=== PATIENT | female | born 1950 | race Caucasian/White ===

== ENCOUNTER → 2017-02-12 | Outpatient (CLI) | payer MEDICARE, BC ==
--- NOTE | 2017-02-12 16:34 | MY ---
EXAMINATION: Bilateral digital mammography utilizing CAD. HISTORY: Screening exam. Comparison is made to previous studies dated 02/08/2015, 01/26/2014. FINDINGS: Bilateral scattered fibroglandular densities. No suspicious calcifications, masses or architectural distortions. No pathologic appearing lymph nodes, no abnormal skin thickening or nipple inversion. CAD highlighted regions appear normal at this time. IMPRESSION: BI-RADS category I - negative mammogram. Continued screening according to ACR-ACS guidelines sugg aston. THE FALSE-NEGATIVE RATE OF MAMMOGRAM IS APPROXIMATELY 10%. MANAGEMENT OF A PALPABLE ABNORMALITY MUST BE BASED UPON CLINICAL GROUNDS. SENSITIVITY FOR DETECTION OF ABNORMALITIES IN DENSE BREASTS IS LOW. NOTE: A letter will be sent to the patient regarding findings. [facility] -- ASTER Ruiz [phone] - FAX [phone]
== END ==
LOC: MW.MAM 12:36
PROVIDERS: ATTEND Obstetrics & Gynecology
DX: Z12.31 Encounter for screening mammogram for malignant neoplasm of breast (principal)
CPT/HCPCS: G0202; G0202-26

== ENCOUNTER → 2017-02-19 | Outpatient (CLI) | payer MEDICARE, BC | END | disposition home or self-care (01) | LOC: MW.CHORTHO 11:30 | PROVIDERS: ATTEND Orthopaedic Surgery | DX: M25.511 Pain in right shoulder (principal) | CPT/HCPCS: 20610; G0463; J1040 ==

== ENCOUNTER 2017-08-14 06:51 | Day surgery (SDC) | payer MEDICARE, BC ==
[~2017-08-14 06:51] MED LIST: Clindamycin Phosphate in D5W 900 MG in Premix Bag 1 BAG IV SCH; Lactated Ringers 1,000 ML IV SCH
[2017-08-14] MEDS ORDERED: Midazolam 1 MG/ML 2 ML SDV ONE (07:21)
[2017-08-14] MEDS ORDERED: Propofol 200 MG/20 ML SDV ONE ×2 (07:21→08:55)
[2017-08-14] MEDS ORDERED: fentaNYL 100 MCG/2 ML SDV ONE (07:21)
[2017-08-14] MEDS ORDERED: Dexamethasone 4 MG/ML 5 ML MDV ONE (07:22)
[2017-08-14] MEDS ORDERED: Sodium Chloride 0.9% 40 ML ONE (07:22)
[2017-08-14] MEDS ORDERED: ceFAZolin 1 GM Vial ONE (07:22)
[2017-08-14] MEDS ORDERED: Succinylcholine/Normal Saline 200 MG/10 ML Syringe ONE (07:22)
[2017-08-14] MEDS ORDERED: Ondansetron 4 MG/2 ML SDV ONE (07:22)
[2017-08-14] MEDS ORDERED: Bupivacaine 0.5% 10 ML SDV ONE (07:58)
[2017-08-14] MEDS ORDERED: Bupivacaine 25%/EPINEPHrine/PF 30 ML ONE (07:58)
[2017-08-14] MEDS ORDERED: Ketorolac 10 MG Tab PO PRN (08:00)
--- NOTE | 2017-08-14 09:37 | PCM.PREANE ---
Preanesthetic Assessment - Procedure Proposed Procedure: Right shoulder arthroscopy and possible repair - Anesthesia/Transfusion/Family Hx Anesthesia History: Prior Anesthesia Without Reaction Family History of Anesthesia Reaction: No Transfusion History: No Prior Transfusion(s) - Review of Systems General: Other (pain in shoulder, legal blindness) Pulmonary: Other (Sleep apnea (no CPAP)) Cardiovascular: Other (HTN) Gastrointestinal: Abdominal Pain (irritable bowel), Other (GERD) Neurological: Other (shoulder pain) - Physical Assessment NPO Status Date: 08/13/17 NPO Status Time: 23:00 O2 Sat by Pulse Oximetry: 97 Respiratory Rate: 16 Vital Signs: Last Vital Signs Temp 98.2 F 08/14/17 06:30 Pulse 81 08/14/17 06:30 Resp 16 08/14/17 06:30 BP 157/86 H 08/14/17 06:30 Pulse Ox 97 08/14/17 06:30 Height: 5 ft 5.5 in Weight: 197 lb ASA Class: 3 Mental Status: Alert & Oriented x3 Airway Class: Mallampati = 3 Dentition: Reports: Normal Dentition Thyro-Mental Finger Breadths: 2 Mouth Opening Finger Breadths: 2 ROM/Head Extension: Limited/Partial Lungs: Clear to Auscultation, Normal Respiratory Effort Cardiovascular: Regular Rate, Regular Rhythm, No Murmurs - Allergies Allergies/Adverse Reactions: Allergies Allergy/AdvReac Type Severity Reaction Status Date / Time amoxicillin [From Augmentin] Allergy Abdominal Verified 08/12/17 12:37 Pain chlorpheniramine Allergy Change Verified 08/12/17 12:37 Mental Status clavulanic acid Allergy Abdominal Verified 08/12/17 12:37 [From Augmentin] Pain esomeprazole magnesium Allergy Stomach Verified 08/12/17 12:37 [From Nexium] Upset sulfamethoxazole Allergy Nausea and Verified 08/12/17 12:37 [From Bactrim] Vomiting trimethoprim [From Bactrim] Allergy Nausea and Verified 08/12/17 12:37 Vomiting - Blood Blood Available: No Product(s) Available: None - Anesthesia Plan Free Text/Narrative:: Probable interscalene block at end case.. agreed and expected. Consent signed. Pre-Op Medication Ordered: Antacids (given omeprazole iv) - Acknowledgements Anesthesia Type Planned: General Anesthesia, Regional Block Pt an Appropriate Candidate for the Planned Anesthesia: Yes Alternatives and Risks of Anesthesia Discussed w Pt/Guardian: Yes Pt/Guardian Understands and Agrees with Anesthesia Plan: Yes Additional Comments: Unable to access computer earlier due to [employer] failure. 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: Musculoskeletal History: Reports: Arthritis Neurological History: Other Neuro History: carpal tunnel syndrome Psychiatric History: Reports: Anxiety Other Psychiatric History: when traveling because of IBS Endocrine/Metabolic History: Reports: Obesity/BMI 30+ Hematologic History: Reports: None Immunologic History: Reports: None Oncologic (Cancer) History: Reports: None Dermatologic History: Reports: None - Infectious Disease History Infectious Disease History: Reports: Chicken Pox, Measles - Past Surgical History HEENT Surgical History: Reports: Cataract Surgery GI Surgical History: Reports: Cholecystectomy, Colonoscopy, EGD Musculoskeletal Surgical History: Reports: Arthroscopic Knee, Other (See Below) Other Musculoskeletal Surgeries/Procedures:: left CTR, Jen procedure -right great toe - SUBSTANCE USE Smoking Status *Q: Never Smoker Second Hand Smoke Exposure: No Days Per Week of Alcohol Use: 0 Recreational Drug Use History: Yes - HOME MEDS Home Medications: Home Meds Omeprazole Magnesium [Prilosec Otc] 40 mg PO DAILY 10/09/14 [History] Psyllium Husk/Ca Carbonate [Metamucil Plus Calcium Capsule] 1 tab PO DAILY 10/09 [History] amLODIPine Besylate [Amlodipine Besylate] 5 mg PO DAILY 10/09/14 [History] Escitalopram [Lexapro] 5 mg PO DAILY 03/11/15 [History] Mirabegron [Myrbetriq] 50 mg PO DAILY 03/11/15 [History] Acetaminophen/Diphenhydramine [Tylenol Pm Ex-Strength Caplet] 1 tab PO BEDTIME 08/12/17 [History] Benifiber 1 dose PO DAILY 08/12/17 [History] Diclofenac Sodium [Voltaren 1% Gel] 1 dose TOP ASDIRECTED 08/12/17 [History] Gastrex 1 dose PO DAILY 08/12/17 [History] Hyoscyamine Sulfate 0.125 mg SL Q4H PRN 08/12/17 [History] L.acidoph,Paracasei, B.lactis [Probiotic] 1 - 2 cap PO DAILY 08/12/17 [History] Loratadine [Claritin] 10 mg PO DAILY 08/12/17 [History] Nystatin [Nystatin Ointment] 1 dose TOP ASDIRECTED PRN 08/12/17 [History] Triamcinolone Acetonide [Triamcinolone Acetonide 0.1% Oint] 1 dose TOP ASDIRECTED PRN 08/12/17 [History] - CURRENT (IN HOUSE) MEDS Current Meds: Current Medications Hydrocodone Bitart/Acetaminophen ([place] 325-10 Mg) 1 - 2 tab PO Q4H PRN PRN Reason: Pain Fentanyl (Sublimaze) 50 mcg IVPUSH Q5M PRN PRN Reason: Pain Clindamycin Phosphate 900 mg/ (Premix) 50 mls @ 100 mls/hr IV ONCALL DARLYN Lactated Ringer's (Ringers, Lactated) 1,000 mls @ 100 mls/hr IV ASDIRECTED DALRYN Ketorolac Tromethamine (Toradol) 10 mg PO Q6H PRN PRN Reason: Pain Stop: 08/19/17 08:01 Discontinued Medications Bupivacaine HCl (Sensorcaine-Mpf 0.5%) Confirm Administered Dose 10 ml .ROUTE .STK-MED ONE Stop: 08/14/17 07:59 Cefazolin Sodium (Ancef) Confirm Administered Dose 2 gm .ROUTE .STK-MED ONE Stop: 08/14/17 07:23 Dexamethasone (Dexamethasone) Confirm Administered Dose 20 mg .ROUTE .STK-MED ONE Stop: 08/14/17 07:23 Fentanyl (Sublimaze) Confirm Administered Dose 200 mcg .ROUTE .STK-MED ONE Stop: 08/14/17 07:22 Sodium Chloride (Normal Saline) Confirm Administered Dose 40 mls @ as directed .ROUTE .STK-MED ONE Stop: 08/14/17 07:23 Bupivacaine HCl/Epinephrine Bitart (Sensorc Mpf 0.25%-Epi 1:[id number]) Confirm Administered Dose 30 mls @ as directed .ROUTE .STK-MED ONE Stop: 08/14/17 07:59 Lidocaine HCl (Xylocaine-Mpf 1%) Confirm Administered Dose 5 ml .ROUTE .STK-MED ONE Stop: 08/14/17 07:23 Midazolam HCl (Versed 1 Mg/Ml) Confirm Administered Dose 2 mg .ROUTE .STK-MED ONE Stop: 08/14/17 07:22 Ondansetron HCl (Zofran) Confirm Administered Dose 4 mg .ROUTE .STK-MED ONE Stop: 08/14/17 07:23 Propofol (Diprivan 20 Ml) Confirm Administered Dose 200 mg .ROUTE .STK-MED ONE Stop: 08/14/17 07:22 Propofol (Diprivan 20 Ml) Confirm Administered Dose 200 mg .ROUTE .STK-MED ONE Stop: 08/14/17 08:56 Succinylcholine Chloride (Succinylcholine In Ns Pf) Confirm Administered Dose 200 mg .ROUTE .STK-MED ONE Stop: 08/14/17 07:23
[2017-08-14] MEDS ORDERED: Famotidine 20 MG/2 ML SDV IVPUSH ONE (10:00)
--- NOTE | 2017-08-14 10:25 | PCM.OPNOTE ---
- General Post-Op/Procedure Note Date of Surgery/Procedure: 08/14/17 Operative Procedure(s): R shoulder arthroscopy with SAD, debridement of anterior labrum, and RTCR Post-Op Diagnosis: R shoulder impingement, degenerative anterior labral tear, and rotator cuff tear Anesthesia Technique: General ET Tube Primary Surgeon: Whitney Eagle Applications Trainer: Bouchra Parra Applications Trainer: Shaun Richardson in mLs: 10 Condition: Good Free Text/Narrative:: #[id number]
[2017-08-14] MEDS: fentaNYL 100 MCG/2 ML SDV IVPUSH PRN ×2 (10:39→10:48)
[2017-08-14] MEDS: Acetaminophen/HYDROcodone 325-10 MG Tab PO PRN ×2 (11:20→14:11)
[2017-08-14] MEDS ORDERED: fentaNYL 100 MCG/2 ML SDV IVPUSH PRN (11:33)
--- NOTE | 2017-08-14 11:38 | PCM.POSTAN ---
POST ANESTHESIA ASSESSMENT - MENTAL STATUS Mental Status: Alert, Oriented - RESPIRATORY Respiratory Status: Respiratory Rate WNL, Airway Patent, O2 Saturation Stable - CARDIOVASCULAR CV Status: Pulse Rate WNL, Blood Pressure Stable - GASTROINTESTINAL GI Status: No Symptoms - PAIN Pain Score: 8 (block obviously did not work) - POST OP HYDRATION Hydration Status: Adequate & Stable - OBSERVATIONS Free Text/Narrative:: to samaria II
--- NOTE | 2017-08-14 11:39 | PCM48HPAN ---
Post Anesthesia Note - EVALUATION WITHIN 48HRS OF ANESTHETIC Vital Signs in Normal Range: Yes Patient Participated in Evaluation: Yes Respiratory Function Stable: Yes Airway Patent: Yes Cardiovascular Function Stable: Yes Hydration Status Stable: Yes Pain Control Satisfactory: Yes (required iv assit to control pain; block failure ) Nausea and Vomiting Control Satisfactory: Yes Mental Status Recovered: Yes
--- NOTE | 2017-08-14 16:44 | OR ---
SURGEON: Whitney Eagle MD DATE OF PROCEDURE: 08/14/2017 PREOPERATIVE DIAGNOSIS: Right shoulder impingement syndrome. POSTOPERATIVE DIAGNOSES: 1. Right shoulder impingement syndrome. 2. Right shoulder degenerative anterior labral tear. 3. Right shoulder rotator cuff tear. PROCEDURES: Right shoulder arthroscopy with: 1. Subacromial decompression with release of coracoacromial ligament and acromioplasty. 2. Debridement of degenerative anterior labral tear. 3. Arthroscopic rotator cuff repair. ASSISTANTS: 1. Bouchra Parra PA-C. 2. Shaun Richardson, PGY-2. ANESTHESIA: General. ESTIMATED BLOOD LOSS: 10 mL. TOURNIQUET TIME: Zero minutes. COMPLICATIONS: None. DVT PROPHYLAXIS: PAS boot to bilateral lower extremities. IMPLANTS USED: Two Arthrex 4.5 mm corkscrew anchors ([employer]) and one Arthrex 4.75 SwiveLock anchor ([employer]). BRIEF HISTORY: Silvestre is a 67-year-old female, who has had complaint of progressive right shoulder pain. She had failed conservative treatment. An MRI did show a tear of the rotator cuff. Due to her lack of response to conservative treatment, I did recommend surgical intervention. Risks and goals of procedure were discussed with the patient and were documented preoperatively. She agreed to proceed. DESCRIPTION OF PROCEDURE: The patient was properly identified and brought to the operating room. She was transferred from the OR cart and placed on the operating room table in supine position. General anesthesia was administered. After adequate anesthesia was obtained, the patient was placed in a beach-chair type position. Care was taken to pad all bony prominences. Her head was secured. The right upper extremity was prepped in standard fashion using ChloraPrep solution. It was then sterilely draped. A time-out was performed to ensure correct site and procedure. Preoperative antibiotics were given. The surgical site had been marked preoperatively. Bony landmarks were identified with a marking pen. Approximately 30 mL of normal saline was introduced into the glenohumeral joint. A posterior portal was established. Blunt trocar and cannula along with the camera were inserted into the glenohumeral joint. Camera, inflow, and outflow were assembled. The rotator interval showed mild synovitis. An anterior portal was established. A probe was inserted. The subscapularis appeared intact. No loose bodies were noted within the subscapular recess. The biceps was then identified. There did not appear to be any fraying or synovitis. This was pulled into the joint and no tearing was noted distally. The anterior labrum did show some degenerative tearing. This was resected back to a stable remnant using electrocautery. Both the glenoid and humeral head were inspected and no significant degenerative changes were found. The posterior labrum appeared intact. I then extended down into the axillary pouch. No loose bodies were identified. The arm was then brought into an abducted and externally rotated position. The bare area was noted posteriorly. As I progressed forward, a full-thickness tear was noted of the anterior supraspinatus. The arm was then brought back into a neutral position. Instruments were then removed from the glenohumeral joint. Blunt trocar and cannula were then introduced into the subacromial space. A lateral portal was established. She did have extensive bursitis present in the subacromial space. This was resected with a combination of the shaver and electrocautery. The coracoacromial ligament was released anteriorly. She did have a downsloping acromion and a 5.0 mm ashish was used to perform an acromioplasty. This provided good decompression of the subacromial space. The full-thickness tear was noted anteriorly. There was only a thin remnant of tissue remaining which was resected. The ashish was then used to roughen the surface just lateral to the articular surface. Two 4.5 mm corkscrew anchors were then placed. Sutures were passed through the cuff tissue. The cuff tissue was quite robust and was able to easily be pulled back to the footprint. The sutures were then tied in a [id number] fashion which provided good placement of the rotator cuff on the bony surface. I elected to place a lateral row to provide further compression to the rotator cuff. A 4.75 mm SwiveLock anchor was then placed laterally. This was attached to the sutures from the cuff repair and was malleted into position. This provided good compression of the lateral portion of the cuff. It was probed and found to be intact. Instruments were then removed from the shoulder. The portal sites were closed with 3-0 nylon. Xeroform gauze was placed over the wound and a bulky dressing was applied. She was placed into a shoulder immobilizer. She tolerated the procedure well. At the completion, the case was turned over to the anesthesia staff for placement of an interscalene block. All needle and sponge counts were correct. HOWIE / SARY /[id number]
[2017-08-14 18:23] VITALS: BP 130/73
== END 2017-08-14 14:45 | disposition home or self-care (01) ==
LOC: MW.SDS 06:51
PROVIDERS: ATTEND Orthopaedic Surgery
DX: M75.41 Impingement syndrome of right shoulder (principal); S43.491A Other sprain of right shoulder joint, initial encounter; M75.121 Complete rotator cuff tear or rupture of right shoulder, not specified as traumatic; M65.811 Other synovitis and tenosynovitis, right shoulder; M75.51 Bursitis of right shoulder; I10 Essential (primary) hypertension; H54.8 Legal blindness, as defined in USA; K21.9 Gastro-esophageal reflux disease without esophagitis; K58.9 Irritable bowel syndrome, unspecified; M19.90 Unspecified osteoarthritis, unspecified site; G47.30 Sleep apnea, unspecified; E66.9 Obesity, unspecified; F41.9 Anxiety disorder, unspecified; Z88.0 Allergy status to penicillin; Z88.1 Allergy status to other antibiotic agents; Z88.2 Allergy status to sulfonamides; Z88.8 Allergy status to other drugs, medicaments and biological substances; Z79.899 Other long term (current) drug therapy; Z68.31 Body mass index [BMI] 31.0-31.9, adult; Z90.49 Acquired absence of other specified parts of digestive tract; Z98.890 Other specified postprocedural states
CPT/HCPCS: 29826; 29827; A9270; C1713; J0690; J1100; J2250; J2405; J3010; J7120; 01622; 88304; J2704

== ENCOUNTER 2018-05-21 07:26 | Day surgery (SDC) | payer MEDICARE, BC ==
[~2018-05-21 07:26] MED LIST changes: +Bupivacaine 25%/EPINEPHrine/PF 30 ML ONE; -Clindamycin Phosphate in D5W 900 MG in Premix Bag 1 BAG IV SCH; -Lactated Ringers 1,000 ML IV SCH
--- NOTE | 2018-05-21 07:56 | PCM.OPNOTE ---
- General Post-Op/Procedure Note Date of Surgery/Procedure: 05/21/18 Operative Procedure(s): excisional debridement skin and subcutaneous tissue and primary intermediate repair total length of both 7cm Pre Op Diagnosis: left leg wound s/p dog bite - chronic Post-Op Diagnosis: Same Anesthesia Technique: Local, MAC Primary Surgeon: Tomasa Mccormack Instructor Ground Services: Norah Parrish Complications: None Condition: Good
--- NOTE | 2018-05-21 07:58 | PCM.PREANE ---
Preanesthetic Assessment - Anesthesia/Transfusion/Family Hx Anesthesia History: Prior Anesthesia Reaction Family History of Anesthesia Reaction: No Transfusion History: No Prior Transfusion(s) - Review of Systems General: No Symptoms Pulmonary: No Symptoms Cardiovascular: No Symptoms Gastrointestinal: No Symptoms Neurological: No Symptoms Other: Reports: None - Physical Assessment NPO Status Date: 05/20/18 Height: 1.66 m Weight: 85.275 kg ASA Class: 2 Mental Status: Alert & Oriented x3 Airway Class: Mallampati = 2 Dentition: Reports: Normal Dentition ROM/Head Extension: Full Lungs: Clear to Auscultation, Normal Respiratory Effort Cardiovascular: Regular Rate, Regular Rhythm - Allergies Allergies/Adverse Reactions: Allergies Allergy/AdvReac Type Severity Reaction Status Date / Time amoxicillin [From Augmentin] Allergy Abdominal Verified 05/15/18 11:07 Pain chlorpheniramine Allergy Change Verified 05/15/18 11:07 Mental Status clavulanic acid Allergy Abdominal Verified 05/15/18 11:07 [From Augmentin] Pain esomeprazole magnesium Allergy Stomach Verified 05/15/18 11:07 [From Nexium] Upset sulfamethoxazole Allergy Nausea and Verified 05/15/18 11:07 [From Bactrim] Vomiting trimethoprim [From Bactrim] Allergy Nausea and Verified 05/15/18 11:07 Vomiting - Anesthesia Plan Pre-Op Medication Ordered: None - Acknowledgements Anesthesia Type Planned: MAC Pt an Appropriate Candidate for the Planned Anesthesia: Yes Alternatives and Risks of Anesthesia Discussed w Pt/Guardian: Yes Pt/Guardian Understands and Agrees with Anesthesia Plan: Yes Additional Comments: PMH: visually impaired, HTN, GERD, IBS, reactive airway disease. 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: Musculoskeletal History: Reports: Arthritis Other Neuro History: carpal tunnel syndrome Psychiatric History: Reports: Anxiety Other Psychiatric History: when traveling because of IBS Endocrine/Metabolic History: Reports: Obesity/BMI 30+ Hematologic History: Reports: None Immunologic History: Reports: None Oncologic (Cancer) History: Reports: None Dermatologic History: Reports: None - Infectious Disease History Infectious Disease History: Reports: Chicken Pox, Measles - Past Surgical History GI Surgical History: Reports: Cholecystectomy Musculoskeletal Surgical History: Reports: Arthroscopic Knee, Carpal Tunnel, Other (See Below) Other Musculoskeletal Surgeries/Procedures:: calcium deposit removed from right great toe - SUBSTANCE USE Smoking Status *Q: Never Smoker Tobacco Use Within Last Twelve Months: No Recreational Drug Use History: No - HOME MEDS Home Medications: Home Meds Omeprazole Magnesium [Prilosec Otc] 40 mg PO DAILY 10/09/14 [History] Psyllium Husk/Ca Carbonate [Metamucil Plus Calcium Capsule] 1 tab PO DAILY 10/09 [History] amLODIPine Besylate [Amlodipine Besylate] 5 mg PO DAILY 10/09/14 [History] Escitalopram [Lexapro] 5 mg PO DAILY 03/11/15 [History] Mirabegron [Myrbetriq] 50 mg PO DAILY 03/11/15 [History] Hyoscyamine Sulfate 0.125 mg SL Q4H PRN 08/12/17 [History] L.acidoph,Paracasei, B.lactis [Probiotic] 1 - 2 cap PO DAILY 08/12/17 [History] Nystatin [Nystatin Ointment] 1 dose TOP ASDIRECTED PRN 08/12/17 [History] Triamcinolone Acetonide [Triamcinolone Acetonide 0.1% Oint] 1 dose TOP ASDIRECTED PRN 08/12/17 [History] Acetaminophen/Diphenhydramine [Tylenol Pm Ex-Strength Caplet] 1 tab PO BEDTIME 05/15/18 [History] Albuterol Sulfate [Proair Hfa] 2 puff INH Q4H PRN 05/15/18 [History] Cetirizine [ZyrTEC] 10 mg PO DAILY 05/15/18 [History] Diclofenac Sodium [Voltaren] 1 dose TOP DAILY PRN 05/15/18 [History] Furosemide 20 mg PO DAILY 05/15/18 [History] Ibuprofen 400 mg PO QAM 05/15/18 [History] - CURRENT (IN HOUSE) MEDS Current Meds: Current Medications Bupivacaine HCl/Epinephrine Bitart (Marcaine 0.25%/Epinephrine 1:200,000) 10 ml INJECT ONETIME ONE Stop: 05/21/18 08:01 Clindamycin Phosphate 600 mg/ (Premix) 50 mls @ 150 mls/hr IV ONETIME ONE Stop: 05/21/18 08:19 Last Admin: 05/21/18 07:41 Dose: 150 mls/hr Lactated Ringer's (Ringers, Lactated) 1,000 mls @ 125 mls/hr IV ASDIRECTED [facility] Last Admin: 05/21/18 07:42 Dose: 125 mls/hr Tramadol HCl (Ultram) 50 mg PO Q4H PRN PRN Reason: Pain Discontinued Medications Bupivacaine HCl/Epinephrine Bitart (Sensorc Mpf 0.25%-Epi 1:[id number]) Confirm Administered Dose 30 mls @ as directed .ROUTE .STK-MED ONE Stop: 05/21/18 07:21
[2018-05-21] MEDS ORDERED: traMADol 50 MG Tab PO PRN (08:00)
[2018-05-21] MEDS ORDERED: Lactated Ringers 1,000 ML IV SCH (08:00)
[2018-05-21] MEDS ORDERED: Clindamycin Phosphate in D5W 600 MG in Premix Bag 1 BAG IV ONE ×2 (08:00)
[2018-05-21] MEDS ORDERED: Bupivacaine 0.25%/EPINEPHrine 1:200,000 10 ML SDV INJECT ONE (08:00)
[2018-05-21] MEDS ORDERED: ceFAZolin/Dextrose,Iso-Osmotic 2 GM/50 ML Duplex Bag IV ONE (08:31)
[2018-05-21] MEDS ORDERED: Lidocaine 2% 5 ML SDV ONE (08:31)
[2018-05-21] MEDS ORDERED: Propofol 200 MG/20 ML SDV ONE (08:31)
[2018-05-21] MEDS ORDERED: Midazolam 1 MG/ML 2 ML SDV ONE (08:32)
[2018-05-21] MEDS ORDERED: fentaNYL 100 MCG/2 ML SDV ONE (08:32)
--- NOTE | 2018-05-21 09:55 | PCM.POSTAN ---
POST ANESTHESIA ASSESSMENT - MENTAL STATUS Mental Status: Alert, Oriented - RESPIRATORY Respiratory Status: Respiratory Rate WNL, Airway Patent, O2 Saturation Stable - CARDIOVASCULAR CV Status: Pulse Rate WNL, Blood Pressure Stable - GASTROINTESTINAL GI Status: No Symptoms - POST OP HYDRATION Hydration Status: Adequate & Stable
--- NOTE | 2018-05-21 10:03 | PCM48HPAN ---
Post Anesthesia Note - EVALUATION WITHIN 48HRS OF ANESTHETIC Vital Signs in Normal Range: Yes Patient Participated in Evaluation: Yes Respiratory Function Stable: Yes Airway Patent: Yes Cardiovascular Function Stable: Yes Hydration Status Stable: Yes Pain Control Satisfactory: Yes Nausea and Vomiting Control Satisfactory: Yes Mental Status Recovered: Yes Resp Rate: 11
[2018-05-21 11:03] VITALS: BP 131/69
--- NOTE | 2018-05-22 12:13 | OR ---
SURGEON: SHAMEKA ELIZABETH MD DATE OF PROCEDURE: 05/21/2018 PREOPERATIVE DIAGNOSIS: Left leg wound, chronic, status post dog bite. POSTOPERATIVE DIAGNOSIS: Left leg wound, chronic, status post dog bite. PROCEDURES: Excisional debridement, skin and subcutaneous tissue with primary intermediate repair. Total length of both procedures 7 cm. 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 ANESTHESIA: Local MAC. INDICATIONS: Ms. Tinsley is a 68-year-old female seen today in evaluation for a chronic nonhealing wound to the left lower extremity. Risks and benefits of debridement and primary closure were discussed with her. She is doing wound care . This could be in a deeper foreign body. Risks and benefits discussed and all questions answered. She was in agreement to proceed. PROCEDURE IN DETAIL: After informed consent was obtained and placed on the chart, the patient was brought to the operating theater and laid in supine position. After adequate local MAC anesthesia was obtained, the area was prepped and draped and a time- out was completed to confirm side and site. The area was prepped and draped, and attention was then paid to 0.25% Marcaine infiltration into the area. After adequate anesthesia, the area was excised in elliptical fashion with adequate debridement of total length of 7 cm. Once adequately debrided, this was sent for pathology and the area was meticulously hemostased. Attention was then paid to closure using 3-0 Monocryl for the deep fascial layer and the deep dermis and then a 4-0 Prolene in a horizontal mattress fashion for the skin. The wound was then dressed with Xeroform, ABD, and an Nick wrap. The patient tolerated this well. Total length of closure was 7 cm intermediate. FOLLOWUP INSTRUCTIONS: The patient will see us in 1 week, sooner if any problems, questions, or concerns. She was given a prescription for tramadol as needed for pain control. TODD / SARY /[id number]
== END 2018-05-21 10:50 | disposition home or self-care (01) ==
LOC: MW.SDS 07:26
PROVIDERS: ATTEND Plastic Surgery
DX: S81.852A Open bite, left lower leg, initial encounter (principal); W54.0XXA Bitten by dog, initial encounter; I10 Essential (primary) hypertension; H54.8 Legal blindness, as defined in USA; J44.9 Chronic obstructive pulmonary disease, unspecified; E66.9 Obesity, unspecified; Z68.30 Body mass index [BMI] 30.0-30.9, adult; F41.9 Anxiety disorder, unspecified; K21.9 Gastro-esophageal reflux disease without esophagitis; Z79.899 Other long term (current) drug therapy; Z88.1 Allergy status to other antibiotic agents; Z88.8 Allergy status to other drugs, medicaments and biological substances; Z88.0 Allergy status to penicillin
CPT/HCPCS: 12032; J0690; J2250; J2704; J3010; J3490; J7120

== ENCOUNTER 2019-02-22 14:54 | Emergency (ER) | payer MEDICARE, BC ==
[2019-02-22] MEDS ORDERED: Albuterol/Ipratropium 3.0-0.5 MG/3 ML Neb Soln NEB ONE (15:07)
--- NOTE | 2019-02-22 15:11 | EDM.PDOC ---
ED HPI GENERAL MEDICAL PROBLEM - General Chief Complaint: Respiratory Problem Stated Complaint: COUGH Time Seen by Provider: 02/22/19 15:01 - History of Present Illness INITIAL COMMENTS - FREE TEXT/NARRATIVE: HISTORY AND PHYSICAL: History of present illness: Patient is a 68-year-old white female history of COPD who presents with concern of cough over last several days she states she's concerned about x-ray and evaluation for pneumonia. There's been no fever chills nausea vomitingReview of systems: As per history of present illness and below otherwise all systems reviewed and negative. Past medical history: As per history of present illness and as reviewed below otherwise noncontributory. Surgical history: As per history of present illness and as reviewed below otherwise noncontributory. Social history: No reported history of drug or alcohol abuse. Family history: As per history of present illness and as reviewed below otherwise noncontributory. Physical exam: HEENT: Atraumatic, normocephalic, pupils reactive, negative for conjunctival pallor or scleral icterus, mucous membranes moist, throat clear, neck supple, nontender, trachea midline. Lungs: Clear to auscultation, breath sounds equal bilaterally, chest nontender. Heart: S1S2, regular, negative for clicks, rubs, or JVD. Abdomen: Soft, nondistended, nontender. Negative for masses or hepatosplenomegaly. Negative for costovertebral tenderness. Pelvis: Stable nontender. Genitourinary: Deferred. Rectal: Deferred. Extremities: Atraumatic, negative for cords or calf pain. Neurovascular unremarkable. Neuro: Awake, alert, oriented. Cranial nerves II through XII unremarkable. Cerebellum unremarkable. Motor and sensory unremarkable throughout. Exam nonfocal. Diagnostics: Chest x-ray influenza screen Therapeutics: Albuterol ipratropium nebulized Impression: #1 pneumonitis #2 history of COPD Definitive disposition and diagnosis as appropriate pending reevaluation and review of above. - Related Data Allergies Allergy/AdvReac Type Severity Reaction Status Date / Time amoxicillin [From Augmentin] Allergy Abdominal Verified 05/15/18 11:07 Pain chlorpheniramine Allergy Change Verified 05/15/18 11:07 Mental Status clavulanic acid Allergy Abdominal Verified 05/15/18 11:07 [From Augmentin] Pain esomeprazole magnesium Allergy Stomach Verified 05/15/18 11:07 [From Nexium] Upset sulfamethoxazole Allergy Nausea and Verified 05/15/18 11:07 [From Bactrim] Vomiting trimethoprim [From Bactrim] Allergy Nausea and Verified 05/15/18 11:07 Vomiting Home Meds: Home Meds Omeprazole Magnesium [Prilosec Otc] 40 mg PO DAILY 10/09/14 [History] Psyllium Husk/Ca Carbonate [Metamucil Plus Calcium Capsule] 1 tab PO DAILY 10/09 [History] amLODIPine Besylate [Amlodipine Besylate] 5 mg PO DAILY 10/09/14 [History] Escitalopram [Lexapro] 5 mg PO DAILY 03/11/15 [History] Mirabegron [Myrbetriq] 50 mg PO DAILY 03/11/15 [History] Hyoscyamine Sulfate 0.125 mg SL Q4H PRN 08/12/17 [History] L.acidoph,Paracasei, B.lactis [Probiotic] 1 - 2 cap PO DAILY 08/12/17 [History] Nystatin [Nystatin Ointment] 1 dose TOP ASDIRECTED PRN 08/12/17 [History] Triamcinolone Acetonide [Triamcinolone Acetonide 0.1% Oint] 1 dose TOP ASDIRECTED PRN 08/12/17 [History] Acetaminophen/Diphenhydramine [Tylenol Pm Ex-Strength Caplet] 1 tab PO BEDTIME 05/15/18 [History] Albuterol Sulfate [Proair Hfa] 2 puff INH Q4H PRN 05/15/18 [History] Cetirizine [ZyrTEC] 10 mg PO DAILY 05/15/18 [History] Diclofenac Sodium [Voltaren] 1 dose TOP DAILY PRN 05/15/18 [History] Furosemide 20 mg PO DAILY 05/15/18 [History] Ibuprofen 400 mg PO QAM 05/15/18 [History] traMADol [Ultram] 50 mg PO Q4H PRN #30 tablet 05/21/18 [Rx] Past Medical History - Past Health History Medical/Surgical History: Denies Medical/Surgical History HEENT History: Reports: Impaired Vision Other HEENT History: is legally blind Cardiovascular History: Reports: Hypertension Other Cardiovascular History: was told she has a "leaky valve " in her heart Respiratory History: Reports: COPD Other Respiratory History: recently diagnosed with moderate sleep apnea, no CPAP yet Gastrointestinal History: Reports: GERD, Irritable Bowel Syndrome Genitourinary History: Reports: None 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: Musculoskeletal History: Reports: Arthritis Other Neuro History: carpal tunnel syndrome Psychiatric History: Reports: Anxiety Other Psychiatric History: when traveling because of IBS Endocrine/Metabolic History: Reports: Obesity/BMI 30+ Hematologic History: Reports: None Immunologic History: Reports: None Oncologic (Cancer) History: Reports: None Dermatologic History: Reports: None - Infectious Disease History Infectious Disease History: Reports: Chicken Pox, Measles - Past Surgical History Head Surgeries/Procedures: Reports: None HEENT Surgical History: Reports: Cataract Surgery GI Surgical History: Reports: Cholecystectomy Musculoskeletal Surgical History: Reports: Arthroscopic Knee, Carpal Tunnel, Other (See Below) Other Musculoskeletal Surgeries/Procedures:: calcium deposit removed from right great toe Social & Family History - Family History Family Medical History: Noncontributory - Caffeine Use Caffeine Use: Reports: Coffee ED ROS GENERAL - Review of Systems Review Of Systems: ROS reveals no pertinent complaints other than HPI. ED EXAM, GENERAL - Physical Exam Exam: See Below (See dictation) Course - Orders/Labs/Meds Orders: Active Orders 24 hr Category Date Time Status RT Aerosol Therapy [RC] ASDIRECTED Care 02/22/19 15:08 Active Chest 1V Frontal [CR] Stat Exams 02/22/19 15:07 Ordered INFLUENZA A+B AG SCREEN [RM] Stat Lab 02/22/19 15:07 Ordered Meds: Medications Discontinued Medications Generic Name Dose Route Start Last Admin Trade Name Freq PRN Reason Stop Dose Admin Albuterol/Ipratropium 3 ml 02/22/19 15:07 Duoneb 3.0-0.5 Mg/3 Ml NEB 02/22/19 15:08 ONETIME ONE Departure - Departure Time of Disposition: 15:10 Disposition: Home, Self-Care 01 Condition: Good Clinical Impression: Pneumonitis, COPD (chronic obstructive pulmonary disease) - Discharge Information Referrals: PCP,None [Primary Care Provider] - Additional Instructions: The following information is given to patients seen in the emergency department who are being discharged to home. This information is to outline your options for follow-up care. We provide all patients seen in our emergency department with a follow-up referral. The need for follow-up, as well as the timing and circumstances, are variable depending upon the specifics of your emergency department visit. If you don't have a primary care physician on staff, we will provide you with a referral. We always advise you to contact your personal physician following an emergency department visit to inform them of the circumstance of the visit and for follow-up with them and/or the need for any referrals to a consulting specialist. The emergency department will also refer you to a specialist when appropriate. This referral assures that you have the opportunity for followup care with a specialist. All of these measure are taken in an effort to provide you with optimal care, which includes your followup. Under all circumstances we always encourage you to contact your private physician who remains a resource for coordinating your care. When calling for followup care, please make the office aware that this follow-up is from your recent emergency room visit. If for any reason you are refused follow-up, please contact the [facility] emergency department at and asked to speak to the emergency department charge nurse. Z-Lisandro Medrol as prescribed continue inhaler as directed follow-up private medical doctor as needed discussed and return as needed as discussed - My Orders Last 24 Hours: My Active Orders 02/22/19 15:07 Chest 1V Frontal [CR] Stat INFLUENZA A+B AG SCREEN [RM] Stat 02/22/19 15:08 RT Aerosol Therapy [RC] ASDIRECTED - Assessment/Plan Last 24 Hours: My Active Orders 02/22/19 15:07 Chest 1V Frontal [CR] Stat INFLUENZA A+B AG SCREEN [RM] Stat 02/22/19 15:08 RT Aerosol Therapy [RC] ASDIRECTED
[2019-02-22 16:05] VITALS: BP 136/70
--- NOTE | 2019-02-22 16:13 | CR ---
INDICATION: Chest pain. Shortness of breath. TECHNIQUE: Single-view chest. COMPARISON: None FINDINGS: Cardiovascular and mediastinum: Cardiac silhouette is not enlarged. Mild tortuosity of the descending thoracic aorta. Lungs and pleural spaces: No consolidation or overt edema. No mass. No pleural effusion. No pneumothorax. Bones and soft tissues: No acute findings. IMPRESSION: No acute pulmonary process. Dictated by Dennis Jameson MD @ 02/22/2019 4:12:48 PM Dictated by: Dennis Jameson MD @ 02/22/2019 16:13:07 (Electronically Signed)
== END 2019-02-22 16:30 | disposition home or self-care (01) ==
LOC: MW.ED 14:54
DX: J18.9 Pneumonia, unspecified organism (principal); J44.9 Chronic obstructive pulmonary disease, unspecified; I10 Essential (primary) hypertension; E66.9 Obesity, unspecified; Z88.2 Allergy status to sulfonamides; Z88.8 Allergy status to other drugs, medicaments and biological substances; Z68.31 Body mass index [BMI] 31.0-31.9, adult
CPT/HCPCS: 71045; 71045-26; 87804; 94640; 99283; 99284-25; J7620-GY

== ENCOUNTER 2019-03-24 11:23 | Day surgery (SDC) | payer MEDICARE, BC ==
[~2019-03-24 11:23] MED LIST changes: -Bupivacaine 25%/EPINEPHrine/PF 30 ML ONE; +Lactated Ringers 1,000 ML IV SCH
--- NOTE | 2019-03-24 13:14 | PCM.PREANE ---
Preanesthetic Assessment - Anesthesia/Transfusion/Family Hx Anesthesia History: Prior Anesthesia Without Reaction Family History of Anesthesia Reaction: No Transfusion History: No Prior Transfusion(s) - Review of Systems General: No Symptoms Pulmonary: Other (CEDRIC- uses CPAP, COPD) Cardiovascular: No Symptoms Neurological: No Symptoms Other: Reports: None - Physical Assessment NPO Status Date: 03/23/19 NPO Status Time: 22:30 O2 Sat by Pulse Oximetry: 99 Respiratory Rate: 15 Vital Signs: Last Vital Signs Temp 97.3 F 03/24/19 12:40 Pulse 87 03/24/19 12:40 Resp 15 03/24/19 12:40 BP 160/88 H 03/24/19 12:40 Pulse Ox 99 03/24/19 12:40 Height: 5 ft 5 in Weight: 88.904 kg ASA Class: 3 Mental Status: Alert & Oriented x3 Airway Class: Mallampati = 2 Dentition: Reports: Normal Dentition ROM/Head Extension: Full Lungs: Clear to Auscultation, Normal Respiratory Effort Cardiovascular: Regular Rate, Regular Rhythm - Lab Values: Laboratory Last Values WBC 6.79 K/uL (4.0-11.0) 03/24/19 12:42 RBC 4.70 M/uL (4.30-5.90) 03/24/19 12:42 Hgb 14.2 g/dL (12.0-16.0) 03/24/19 12:42 Hct 43.5 % (36.0-46.0) 03/24/19 12:42 MCV 92.6 fL (80.0-98.0) 03/24/19 12:42 MCH 30.2 pg (27.0-32.0) 03/24/19 12:42 MCHC 32.6 g/dL (31.0-37.0) 03/24/19 12:42 RDW Std Deviation 47.5 fl (28.0-62.0) 03/24/19 12:42 RDW Coeff of Katherine 14 % (11.0-15.0) 03/24/19 12:42 Plt Count 288 K/uL (150-400) 03/24/19 12:42 MPV 8.80 fL (7.40-12.00) 03/24/19 12:42 Nucleated RBC % 0.0 /100WBC 03/24/19 12:42 Nucleated RBCs # 0 K/uL 03/24/19 12:42 - Allergies Allergies/Adverse Reactions: Allergies Allergy/AdvReac Type Severity Reaction Status Date / Time amoxicillin [From Augmentin] Allergy Abdominal Verified 03/19/19 10:38 Pain chlorpheniramine Allergy Change Verified 03/19/19 10:38 Mental Status clavulanic acid Allergy Abdominal Verified 03/19/19 10:38 [From Augmentin] Pain esomeprazole magnesium Allergy Stomach Verified 03/19/19 10:38 [From Nexium] Upset sulfamethoxazole Allergy Nausea and Verified 03/19/19 10:38 [From Bactrim] Vomiting trimethoprim [From Bactrim] Allergy Nausea and Verified 03/19/19 10:38 Vomiting - Blood Blood Available: No - Anesthesia Plan Pre-Op Medication Ordered: None - Acknowledgements Anesthesia Type Planned: General Anesthesia Pt an Appropriate Candidate for the Planned Anesthesia: Yes Alternatives and Risks of Anesthesia Discussed w Pt/Guardian: Yes Pt/Guardian Understands and Agrees with Anesthesia Plan: Yes Additional Comments: anes prob list: blind, CEDRIC, IBS, GERD, HTN PLAN: ga with todadol and zofran PreAnesthesia Questionnaire - Past Health History Medical/Surgical History: Denies Medical/Surgical History HEENT History: Reports: Allergic Rhinitis, Impaired Vision Other HEENT History: Cone Giovani Dystrophy Cardiovascular History: Reports: Hypertension Other Cardiovascular History: was told she has a "leaky valve " in her heart Respiratory History: Reports: COPD, Sleep Apnea Other Respiratory History: states "mild" COPD, uses CPAP Gastrointestinal History: Reports: Chronic Constipation, Chronic Diarrhea, GERD , Irritable Bowel Syndrome Genitourinary History: Reports: None 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: Musculoskeletal History: Reports: Osteoarthritis Neurological History: Reports: Other (See Below) Other Neuro History: hx of motion sickness Psychiatric History: Reports: Anxiety Other Psychiatric History: when traveling because of IBS Endocrine/Metabolic History: Reports: Obesity/BMI 30+ Hematologic History: Reports: None Immunologic History: Reports: None Oncologic (Cancer) History: Reports: None Dermatologic History: Reports: Other (See Below) Other Dermatologic History: occasional rash in genital area - Infectious Disease History Infectious Disease History: Reports: Chicken Pox, Measles - Past Surgical History Head Surgeries/Procedures: Reports: None HEENT Surgical History: Reports: Cataract Surgery, Other (See Below) Other HEENT Surgeries/Procedures: left Blepharoplasty GI Surgical History: Reports: Cholecystectomy, Colonoscopy, EGD Musculoskeletal Surgical History: Reports: Arthroscopic Knee, Carpal Tunnel, Shoulder Surgery, Other (See Below) Other Musculoskeletal Surgeries/Procedures:: right RTCR, right foot toe joint removal, I&D left leg (dog bite) - SUBSTANCE USE Smoking Status *Q: Former Smoker Recreational Drug Use History: No - HOME MEDS Home Medications: Home Meds Omeprazole Magnesium [Prilosec Otc] 40 mg PO DAILY 10/09/14 [History] Psyllium Husk/Ca Carbonate [Metamucil Plus Calcium Capsule] 1 tab PO DAILY PRN 10/09/14 [History] Escitalopram [Lexapro] 5 mg PO DAILY 03/11/15 [History] Mirabegron [Myrbetriq] 50 mg PO DAILY 03/11/15 [History] Hyoscyamine Sulfate 0.125 mg SL Q4H PRN 08/12/17 [History] L.acidoph,Paracasei, B.lactis [Probiotic] 1 cap PO DAILY 08/12/17 [History] Nystatin [Nystatin Ointment] 1 dose TOP ASDIRECTED PRN 08/12/17 [History] Triamcinolone Acetonide [Triamcinolone Acetonide 0.1% Oint] 1 dose TOP ASDIRECTED PRN 08/12/17 [History] Albuterol Sulfate [Proair Hfa] 2 puff INH Q4H PRN 05/15/18 [History] Diclofenac Sodium [Voltaren] 1 dose TOP DAILY PRN 05/15/18 [History] Azelastine/Fluticasone [Dymista Nasal [place]] 1 spray NASBOTH DAILY 03/19/19 [ History] Betamethasone Valerate 1 applic TOP BID PRN 03/19/19 [History] Celecoxib [CeleBREX] 100 mg PO BID 03/19/19 [History] Fluticasone Propionate [Flonase Allergy Relief] 1 spray NASBOTH DAILY 03/19/19 [ History] Loratadine [Claritin] 10 mg PO DAILY 03/19/19 [History] Metoprolol Succinate 25 mg PO QAM 03/19/19 [History] - CURRENT (IN HOUSE) MEDS Current Meds: Current Medications Lactated Ringer's (Ringers, Lactated) 1,000 mls @ 100 mls/hr IV ASDIRECTED [facility] Last Admin: 03/24/19 12:55 Dose: 100 mls/hr
[2019-03-24] MEDS ORDERED: fentaNYL 100 MCG/2 ML SDV ONE (14:19)
[2019-03-24] MEDS ORDERED: Propofol 200 MG/20 ML SDV ONE (14:19)
[2019-03-24] MEDS ORDERED: Ondansetron 4 MG/2 ML SDV ONE (14:20)
[2019-03-24] MEDS ORDERED: Dexamethasone 4 MG/ML 5 ML MDV ONE (14:20)
[2019-03-24] MEDS ORDERED: fentaNYL 100 MCG/2 ML SDV IVPUSH PRN (14:29)
[2019-03-24] MEDS ORDERED: Ondansetron 4 MG/2 ML SDV IVPUSH PRN (14:29)
[2019-03-24] MEDS ORDERED: HYDROmorphone 2 MG/ML SDV IVPUSH PRN (14:29)
--- NOTE | 2019-03-24 15:19 | PCM.OPNOTE ---
- General Post-Op/Procedure Note Date of Surgery/Procedure: 03/24/19 Operative Procedure(s): diagnostic hyteroscopy with fractional dilatation and curettage Findings: uterus retroverted sounded to 8 cm, normal uterine cavity, filled with mucous. Pre Op Diagnosis: abnormal findings on ultrasound, suspected hematometra Post-Op Diagnosis: Same Anesthesia Technique: General LMA Primary Surgeon: Natalie Walker Anesthesia Provider: Arianna Montero Pathology: uterine contents (mucous), endocervical curettings, endometrial curettings and pap Fluid Replacement, Intraop: 900 EBL in mLs: 10 Drain/Tube Comments:: hysteroscopic deficit 75 ml Complications: None Known Condition: Good
--- NOTE | 2019-03-24 15:48 | OR ---
SURGEON: Natalie Walker M.D. DATE OF PROCEDURE: 03/24/2019 PREOPERATIVE DIAGNOSIS: Hematometra. POSTOPERATIVE DIAGNOSIS: Hematometra. PROCEDURE: Diagnostic hysteroscopy, fractional D and C. PRIMARY SURGEON: Natalie Walker M.D. ANESTHESIA: General. ESTIMATED BLOOD LOSS: Less than 10 mL. FLUIDS: 900 mL crystalloid. HYSTEROSCOPIC DEFICIT: 75 mL normal saline. FINDINGS: Uterus retroverted, 8-week size, sounds to 8 cm. External cervical os is stenotic. Excellent visualization of the uterus. Bilateral tubal ostia were identified. The uterine cavity was smooth without any lesions. There was mucus that exuded at the time when the uterine cavity was entered with dilatation and this is what I feel was noted on ultrasound. COMPLICATIONS: None known. DISPOSITION: Stable to recovery. BRIEF HISTORY: This is a 68-year-old female. She presents for hysteroscopic evaluation of the uterus. She was seen in the clinic actually for evaluation of incontinence, but at that time had complained of abdominal bloating. Ultrasound was actually done to evaluate ovaries. However, fluid was noted to be within the endometrial cavity, and therefore I did recommend further evaluation with hysteroscopy and fractional D and C with risks discussed including bleeding, infection, uterine perforation with injury to viscera, risk of thromboembolic event, risk of anesthesia. Understanding all these risks, she does desire to proceed. DESCRIPTION OF PROCEDURE: With the patient in dorsal lithotomy position, under adequate IV sedation, the perineum and vagina were prepped with Betadine and draped in usual fashion for vaginal surgery. SCDs were in place. The bladder had been drained with a straight cath and an appropriate time-out was held. Bimanual examination revealed a retroverted 8-week size uterus. The speculum was placed into the vagina. The external os of the cervix was stenotic and therefore using lacrimal duct dilators, I was able to follow the cervical canal to the endometrium and gently dilate up to a 5 mm Hegar dilator. The hysteroscope was then placed into the uterine cavity. There was excellent visualization. There were no lesions noted. As the uterine cavity was entered with a larger size lacrimal duct dilator, the mucus began to exude from the cervix and I feel that this was what was noted at the time of the ultrasound. After the hysteroscopy was complete, sharp curettage of the endocervix was performed and collected with a Cytobrush. Sharp curettage of the endometrium was performed. There was very minimal tissue obtained and a Pap smear was obtained. All the instruments were removed from the vagina. Final sponge, needle, and instrument counts were reported as correct. There were no known complications. The patient was transferred to recovery in good condition. RACHELL / SARY /[id number]
--- NOTE | 2019-03-24 16:44 | PCM48HPAN ---
Post Anesthesia Note - EVALUATION WITHIN 48HRS OF ANESTHETIC Vital Signs in Normal Range: Yes Patient Participated in Evaluation: Yes Respiratory Function Stable: Yes Airway Patent: Yes Cardiovascular Function Stable: Yes Hydration Status Stable: Yes Pain Control Satisfactory: Yes Nausea and Vomiting Control Satisfactory: Yes Mental Status Recovered: Yes Pulse Rate: 65 SaO2: 96 Resp Rate: 14 Temperature: 97.0 F Blood Pressure: 143/76
[2019-03-24 17:04] VITALS: BP 155/86
== END 2019-03-24 16:50 | disposition home or self-care (01) ==
LOC: MW.SDS 11:23
PROVIDERS: ATTEND Obstetrics & Gynecology
DX: N85.8 Other specified noninflammatory disorders of uterus (principal); N85.7 Hematometra; N39.0 Urinary tract infection, site not specified; I10 Essential (primary) hypertension; J44.9 Chronic obstructive pulmonary disease, unspecified; G47.33 Obstructive sleep apnea (adult) (pediatric); K21.9 Gastro-esophageal reflux disease without esophagitis; M19.90 Unspecified osteoarthritis, unspecified site; E66.9 Obesity, unspecified; Z68.32 Body mass index [BMI] 32.0-32.9, adult; Z99.89 Dependence on other enabling machines and devices; Z87.891 Personal history of nicotine dependence; Z88.1 Allergy status to other antibiotic agents; Z88.8 Allergy status to other drugs, medicaments and biological substances; Z79.1 Long term (current) use of non-steroidal anti-inflammatories (NSAID); Z79.899 Other long term (current) drug therapy
CPT/HCPCS: 36415; 58558; 85027; 88305; G0145; J0131; J1100; J2001; J2405; J2704; J3010; J7120

== ENCOUNTER 2019-11-29 11:16 | Emergency (ER) | payer MEDICARE, BC ==
--- NOTE | 2019-11-29 12:08 | EDM.PDOC ---
ED HPI GENERAL MEDICAL PROBLEM - General Chief Complaint: Genitourinary Problem Stated Complaint: UTI Time Seen by Provider: 11/29/19 12:08 Source of Information: Reports: Patient - History of Present Illness INITIAL COMMENTS - FREE TEXT/NARRATIVE: HISTORY AND PHYSICAL: History of present illness: [Patient presents with frequency and dysuria for 48 hours history of UTI over the last several months no fever nausea vomiting chills sweats ] Review of systems: As per history of present illness and below otherwise all systems reviewed and negative. Past medical history: As per history of present illness and as reviewed below otherwise noncontributory. Surgical history: As per history of present illness and as reviewed below otherwise noncontributory. Social history: No reported history of drug or alcohol abuse. Family history: As per history of present illness and as reviewed below otherwise noncontributory. Physical exam: HEENT: Atraumatic, normocephalic, pupils reactive, negative for conjunctival pallor or scleral icterus, mucous membranes moist, throat clear, neck supple, nontender, trachea midline. Lungs: Clear to auscultation, breath sounds equal bilaterally, chest nontender. Heart: S1S2, regular, negative for clicks, rubs, or JVD. Abdomen: Soft, nondistended, nontender. Negative for masses or hepatosplenomegaly. Negative for costovertebral tenderness. Pelvis: Stable nontender. Genitourinary: Deferred. Rectal: Deferred. Extremities: Atraumatic, negative for cords or calf pain. Neurovascular unremarkable. Neuro: Awake, alert, oriented. Cranial nerves II through XII unremarkable. Cerebellum unremarkable. Motor and sensory unremarkable throughout. Exam nonfocal. Diagnostics: [ua ] Therapeutics: [macrobid ] Impression: [uti ] Definitive disposition and diagnosis as appropriate pending reevaluation and review of above. urination Pain Score (Numeric/FACES): 2 - Related Data Allergies Allergy/AdvReac Type Severity Reaction Status Date / Time amoxicillin [From Augmentin] Allergy Abdominal Verified 11/29/19 11:30 Pain chlorpheniramine Allergy Change Verified 11/29/19 11:30 Mental Status clavulanic acid Allergy Abdominal Verified 11/29/19 11:30 [From Augmentin] Pain esomeprazole magnesium Allergy Stomach Verified 11/29/19 11:30 [From Nexium] Upset sulfamethoxazole Allergy Nausea and Verified 11/29/19 11:30 [From Bactrim] Vomiting trimethoprim [From Bactrim] Allergy Nausea and Verified 11/29/19 11:30 Vomiting Home Meds: Home Meds Mirabegron [Myrbetriq] 50 mg PO DAILY 03/11/15 [History] Hyoscyamine Sulfate 0.125 mg SL Q4H PRN 08/12/17 [History] Nystatin [Nystatin Ointment] 1 dose TOP ASDIRECTED PRN 08/12/17 [History] Triamcinolone Acetonide [Triamcinolone Acetonide 0.1% Oint] 1 dose TOP ASDIRECTED PRN 08/12/17 [History] Albuterol Sulfate [Proair Hfa] 2 puff INH Q4H PRN 05/15/18 [History] Betamethasone Valerate 1 applic TOP BID PRN 03/19/19 [History] Loratadine [Claritin] 10 mg PO DAILY 03/19/19 [History] Metoprolol Succinate 25 mg PO QAM 03/19/19 [History] Budesonide [Entocort EC] 3 mg PO DAILY 11/29/19 [History] Escitalopram [Lexapro] 5 mg PO DAILY 11/29/19 [History] Fluticasone/Salmeterol [Advair 250-50] 1 puff INH ASDIRECTED 11/29/19 [History] Ipratropium [Atrovent] 0.5 mg .XX ASDIRECTED 11/29/19 [History] Past Medical History - Past Health History Medical/Surgical History: Denies Medical/Surgical History HEENT History: Reports: Allergic Rhinitis, Impaired Vision Other HEENT History: Cone Giovani Dystrophy Cardiovascular History: Reports: Hypertension Other Cardiovascular History: was told she has a "leaky valve " in her heart Respiratory History: Reports: COPD, Sleep Apnea Other Respiratory History: states "mild" COPD, uses CPAP Gastrointestinal History: Reports: Chronic Constipation, Chronic Diarrhea, GERD , Irritable Bowel Syndrome Genitourinary History: Reports: None 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: Musculoskeletal History: Reports: Osteoarthritis Neurological History: Reports: Other (See Below) Other Neuro History: hx of motion sickness Psychiatric History: Reports: Anxiety Other Psychiatric History: when traveling because of IBS Endocrine/Metabolic History: Reports: Obesity/BMI 30+ Hematologic History: Reports: None Immunologic History: Reports: None Oncologic (Cancer) History: Reports: None Dermatologic History: Reports: Other (See Below) Other Dermatologic History: occasional rash in genital area - Infectious Disease History Infectious Disease History: Reports: Chicken Pox, Measles - Past Surgical History Head Surgeries/Procedures: Reports: None HEENT Surgical History: Reports: Cataract Surgery, Naso-Sinus Surgery, Other ( See Below) Other HEENT Surgeries/Procedures: left Blepharoplasty GI Surgical History: Reports: Cholecystectomy, Colonoscopy, EGD Musculoskeletal Surgical History: Reports: Arthroscopic Knee, Carpal Tunnel, Shoulder Surgery, Other (See Below) Other Musculoskeletal Surgeries/Procedures:: right RTCR, right foot toe joint removal, I&D left leg (dog bite) Social & Family History - Family History Family Medical History: Noncontributory - Tobacco Use Smoking Status *Q: Never Smoker Second Hand Smoke Exposure: No - Caffeine Use Caffeine Use: Reports: None - Recreational Drug Use Recreational Drug Use: No ED ROS GENERAL - Review of Systems Review Of Systems: See Below ED EXAM, GENERAL - Physical Exam Exam: See Below Course - Vital Signs Last Recorded V/S: Last Vital Signs Temp 96.5 F 11/29/19 11:31 Pulse 66 11/29/19 11:31 Resp 16 11/29/19 11:31 BP 161/87 H 11/29/19 11:31 Pulse Ox 96 11/29/19 11:31 - Orders/Labs/Meds Orders: Active Orders 24 hr Category Date Time Status CULTURE URINE [RM] Stat Lab 11/29/19 11:36 Received Labs: Laboratory Tests 11/29/19 Range/Units 11:36 Urine Color ORANGE Urine Appearance SLT CLOUDY Urine pH 6.5 (5.0-8.0) Ur Specific [place] 1.010 (1.001-1.035) Urine Protein 30 H (NEGATIVE) mg/dL Urine Glucose (UA) 100 H (NEGATIVE) mg/dL Urine Ketones NEGATIVE (NEGATIVE) mg/dL Urine Occult Blood NEGATIVE (NEGATIVE) Urine Nitrite POSITIVE H (NEGATIVE) Urine Bilirubin NEGATIVE (NEGATIVE) Urine Urobilinogen 4.0 H (<2.0) EU/dL Ur Leukocyte Esterase MODERATE H (NEGATIVE) Urine RBC 0-2 (0-2/HPF) Urine WBC 10-12 (0-5/HPF) Ur Epithelial Cells FEW (NONE-FEW) Urine Bacteria FEW (NEGATIVE) Departure - Departure Time of Disposition: 12:12 Disposition: Home, Self-Care 01 Condition: Good Clinical Impression: UTI, Urinary tract infectious disease - Discharge Information Referrals: Mylene Henao DO [Primary Care Provider] - Forms: ED Department Discharge Additional Instructions: The following information is given to patients seen in the emergency department who are being discharged to home. This information is to outline your options for follow-up care. We provide all patients seen in our emergency department with a follow-up referral. The need for follow-up, as well as the timing and circumstances, are variable depending upon the specifics of your emergency department visit. If you don't have a primary care physician on staff, we will provide you with a referral. We always advise you to contact your personal physician following an emergency department visit to inform them of the circumstance of the visit and for follow-up with them and/or the need for any referrals to a consulting specialist. The emergency department will also refer you to a specialist when appropriate. This referral assures that you have the opportunity for follow-up care with a specialist. All of these measure are taken in an effort to provide you with optimal care, which includes your follow-up. Under all circumstances we always encourage you to contact your private physician who remains a resource for coordinating your care. When calling for follow-up care, please make the office aware that this follow-up is from your recent emergency room visit. If for any reason you are refused follow-up, please contact the [facility] emergency department at and asked to speak to the emergency department charge nurse. Sepsis Event Note - Evaluation Sepsis Screening Result: No Definite Risk - Focused Exam Vital Signs: Vital Signs Temp Pulse Resp BP Pulse Ox 11/29/19 11:31 96.5 F 66 16 161/87 H 96 Date Exam was Performed: 11/29/19 Time Exam was Performed: 12:11 - My Orders Last 24 Hours: My Active Orders 11/29/19 11:36 CULTURE URINE [RM] Stat - Assessment/Plan Last 24 Hours: My Active Orders 11/29/19 11:36 CULTURE URINE [RM] Stat
[2019-11-29 12:23] VITALS: BP 133/74; PULSE 61
== END 2019-11-29 12:25 | disposition home or self-care (01) ==
LOC: MW.ED 11:16
DX: N39.0 Urinary tract infection, site not specified (principal); I10 Essential (primary) hypertension; J44.9 Chronic obstructive pulmonary disease, unspecified; F41.9 Anxiety disorder, unspecified; Z79.51 Long term (current) use of inhaled steroids; Z79.899 Other long term (current) drug therapy; Z88.0 Allergy status to penicillin; Z88.2 Allergy status to sulfonamides; Z88.8 Allergy status to other drugs, medicaments and biological substances
CPT/HCPCS: 81001; 87086; 87088; 87186; 99283

== ENCOUNTER 2020-06-06 14:43 | Emergency (ER) | payer MEDICARE, BC ==
--- NOTE | 2020-06-06 14:51 | EDM.PDOC ---
ED HPI GENERAL MEDICAL PROBLEM - General Chief Complaint: Trauma Stated Complaint: FELL Time Seen by Provider: 06/06/20 14:46 Source of Information: Reports: Patient History Limitations: Reports: No Limitations - History of Present Illness INITIAL COMMENTS - FREE TEXT/NARRATIVE: HISTORY AND PHYSICAL: History of present illness: Patient is a 70-year-old female who presents to the emergency room by ambulance with complaints of neck and back pain post fall. Patient was attempting to climb on a dining chair to water her plants, as she was stepping up she fell backwards onto the floor hitting the back of her head/neck. She states she was able to roll over and crawl to the room. She called for EMS, as she continued to have some left-sided neck pain. She denies any loss of consciousness. Has denies any numbness, tingling, saddle paresthesias of the distal extremities. Patient denies any fever, chills, headache, change in vision, syncope or near syncope. Denies any chest pain, shortness of breath or cough. Denies any abdominal pain, nausea, vomiting, diarrhea, constipation or dysuria. Has not noted any blood in urine or stool. Patient has been eating and drinking appropriately. Prior to the fall she felt healthy and had no health concerns or complaints. Review of systems: As per history of present illness and below otherwise all systems reviewed and negative. Past medical history: As per history of present illness and as reviewed below otherwise noncontributory. Surgical history: As per history of present illness and as reviewed below otherwise nonc ontributory. Social history: See social history for further information Family history: As per history of present illness and as reviewed below otherwise noncontributory. Physical exam: General: Well developed and well nourished 70-year-old female. Alert and oriented. Nontoxic-appearing and in no acute distress. HEENT: Nontender with palpation, no abnormality, obvious injury noted. Normocep halic, pupils equal and reactive bilaterally, patient is legally blind in both eyes, negative for conjunctival pallor or scleral icterus, mucous membranes moist. No oral injury or broken teeth are noted. TMs normal bilaterally, throat clear, neck supple, nontender, trachea midline. No drooling or trismus noted. No meningeal signs. No hot potato voice noted. Lungs: Clear to auscultation, breath sounds equal bilaterally, chest nontender. Heart: S1S2, regular rate and rhythm without overt murmur Abdomen: Soft, nondistended, nontender. Negative for masses or hepatosplenomegaly. Negative for costovertebral tenderness. Pelvis: Stable nontender. C-spine/Back: C-collar by EMS prior to arrival. She does have mild cervical, thoracic and upper lumbar pinpoint vertebral tenderness upon palpation which extends into the bilateral paraspinous muscles. No crepitus, step-offs or obvious deformities. Patient is able to push both feet downward and left great toe up with equal strength/force bilaterally. Positive CMS bilaterally. Denies any urinary or fecal incontinence. Denies any numbness, tingling or saddle paresthesia. No concerns of serious infection, fracture or cord compression, or cauda equina syndrome. Deep tendon reflexes brisk bilaterally. Skin: Intact, warm, dry. No lesions or rashes noted. Hematologic: No petechiae or purpra. Mucosa appropriate color and normal nail bed color and refill. Extremities: Palpated all extremities and she does not appear to have any discomfort or pain. Moves all extremities per self without difficulty or deficits, negative for cords or calf pain. + CMS bilaterally. Neurovascular unremarkable. Neuro: Awake, alert, oriented. Cranial nerves II through XII unremarkable. Cerebellum unremarkable. Motor and sensory unremarkable throughout. Exam no nfocal. Notes: Patient declines any pain medication at this time. Refuses IV access for fluids or medication. Head CT shows no acute findings. Senescent changes noted. Cervical spine CT shows mild degenerative changes. No acute fracture or subluxation is noted. Cervical collar was removed. Patient felt improvement with removal of cervical collar. Continues to have full range of motion as she is adjusting herself in the bed. The lumbar CT shows fracture within the inferior endplate of T12. Fracture is stable and does not involve the posterior elements. Degenerative changes. Portable chest x-ray shows mild atelectasis within the left base. Nothing acute is appreciated. Reviewed CT reports with Dr Carias, attending physician. He agrees that patient can either be admitted for pain control or discharge with close follow up. Patient was informed of her imaging findings. Patient was offered admission for pain control. She declined stating she wants to go home. We discussed in great length signs and symptoms that would prompt her to return to the emergency room. She voices understanding. The need for close follow-up with her primary care provider, medication and supportive care measures were reviewed and discussed. Voices understanding and is agreeable to plan of care. Denies any further questions or concerns at this time. Diagnostics: Head/cervical spine/thoracic spine/lumbar spine CT, 1 view chest, BC, CMP Therapeutics: Hoople Prescription: Hoople Impression: Fall T12 fracture Plan: 1. Your work-up in the ER today showed a fracture of the inferior endplate. This fracture is stable and does not involve the posterior elements. You will likely be sore and experience pain over the next few days/weeks. You have been given a prescription for pain medication. If your symptoms should worsen, new symptoms develop or any of the signs and symptoms we discussed should arise please return to the emergency room or call 911 (if needed). 2. You can alternate Tylenol and/or Ibuprofen as needed. Hoople 1-2 tabs every 4- 6 hours as needed for pain. This medication may cause drowsiness, so do not take while driving or needing to be functioning outside the house. 3. Please call your primary care provider for follow up and re-evaluation as we discussed. Definitive disposition and diagnosis as appropriate pending reevaluation and review of above. Upper back/left shoulder Pain Score (Numeric/FACES): 2 - Related Data Allergies Allergy/AdvReac Type Severity Reaction Status Date / Time amoxicillin [From Augmentin] Allergy Abdominal Verified 06/06/20 14:52 Pain chlorpheniramine Allergy Change Verified 06/06/20 14:52 Mental Status clavulanic acid Allergy Abdominal Verified 06/06/20 14:52 [From Augmentin] Pain esomeprazole magnesium Allergy Stomach Verified 06/06/20 14:52 [From Nexium] Upset sulfamethoxazole Allergy Nausea and Verified 06/06/20 14:52 [From Bactrim] Vomiting trimethoprim [From Bactrim] Allergy Nausea and Verified 06/06/20 14:52 Vomiting Home Meds: Home Meds Mirabegron [Myrbetriq] 50 mg PO DAILY 03/11/15 [History] Hyoscyamine Sulfate 0.125 mg SL Q4H PRN 08/12/17 [History] Nystatin [Nystatin Ointment] 1 dose TOP ASDIRECTED PRN 08/12/17 [History] Triamcinolone Acetonide [Triamcinolone Acetonide 0.1% Oint] 1 dose TOP ASDIRECTED PRN 08/12/17 [History] Albuterol Sulfate [Proair Hfa] 2 puff INH Q4H PRN 05/15/18 [History] Betamethasone Valerate 1 applic TOP BID PRN 03/19/19 [History] Loratadine [Claritin] 10 mg PO DAILY 03/19/19 [History] Metoprolol Succinate 25 mg PO QAM 03/19/19 [History] Budesonide [Entocort EC] 3 mg PO DAILY 11/29/19 [History] Escitalopram [Lexapro] 5 mg PO DAILY 11/29/19 [History] Fluticasone/Salmeterol [Advair 250-50] 1 puff INH ASDIRECTED 11/29/19 [History] Ipratropium [Atrovent] 0.5 mg .XX ASDIRECTED 11/29/19 [History] Acetaminophen/HYDROcodone [Hoople 325-5 MG] 1 dose PO Q4H #30 tablet 06/06/20 [Rx] Past Medical History - Past Health History Medical/Surgical History: Denies Medical/Surgical History HEENT History: Reports: Allergic Rhinitis, Impaired Vision Other HEENT History: Cone Giovani Dystrophy Cardiovascular History: Reports: Hypertension Other Cardiovascular History: was told she has a "leaky valve " in her heart Respiratory History: Reports: COPD, Sleep Apnea Other Respiratory History: states "mild" COPD, uses CPAP Gastrointestinal History: Reports: Chronic Constipation, Chronic Diarrhea, GERD, Irritable Bowel Syndrome Genitourinary History: Reports: None 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: Musculoskeletal History: Reports: Osteoarthritis Neurological History: Reports: Other (See Below) Other Neuro History: hx of motion sickness Psychiatric History: Reports: Anxiety Other Psychiatric History: when traveling because of IBS Endocrine/Metabolic History: Reports: Obesity/BMI 30+ Hematologic History: Reports: None Immunologic History: Reports: None Oncologic (Cancer) History: Reports: None Dermatologic History: Reports: Other (See Below) Other Dermatologic History: occasional rash in genital area - Infectious Disease History Infectious Disease History: Reports: Chicken Pox, Measles - Past Surgical History Head Surgeries/Procedures: Reports: None HEENT Surgical History: Reports: Cataract Surgery, Naso-Sinus Surgery, Other (See Below) Other HEENT Surgeries/Procedures: left Blepharoplasty GI Surgical History: Reports: Cholecystectomy, Colonoscopy, EGD Musculoskeletal Surgical History: Reports: Arthroscopic Knee, Carpal Tunnel, Shoulder Surgery, Other (See Below) Other Musculoskeletal Surgeries/Procedures:: right RTCR, right foot toe joint removal, I&D left leg (dog bite) Social & Family History - Family History Family Medical History: Noncontributory - Caffeine Use Caffeine Use: Reports: None Review of Systems - Review of Systems Review Of Systems: Comprehensive ROS is negative, except as noted in HPI. ED EXAM, GENERAL - Physical Exam Exam: See Below (See dictation) Course - Vital Signs Last Recorded V/S: Last Vital Signs Temp 96.6 F L 06/06/20 14:49 Pulse 80 06/06/20 17:15 Resp 17 06/06/20 17:15 BP 156/86 H 06/06/20 17:15 Pulse Ox 98 06/06/20 17:15 - Orders/Labs/Meds Labs: Laboratory Tests 06/06/20 06/06/20 Range/Units 14:53 14:53 WBC 10.14 (4.0-11.0) K/uL RBC 4.07 L (4.30-5.90) M/uL Hgb 12.6 (12.0-16.0) g/dL Hct 38.1 (36.0-46.0) % MCV 93.6 (80.0-98.0) fL MCH 31.0 (27.0-32.0) pg MCHC 33.1 (31.0-37.0) g/dL RDW Std Deviation 47.2 (28.0-62.0) fl RDW Coeff of Katherine 14 (11.0-15.0) % Plt Count 215 (150-400) K/uL MPV 8.00 (7.40-12.00) fL Neut % (Auto) 72.5 (48.0-80.0) % Lymph % (Auto) 19.7 (16.0-40.0) % [place] % (Auto) 6.7 (0.0-15.0) % Eos % (Auto) 1.0 (0.0-7.0) % Baso % (Auto) 0.1 (0.0-1.5) % Neut # (Auto) 7.4 H (1.4-5.7) K/uL Lymph # (Auto) 2.0 (0.6-2.4) K/uL [place] # (Auto) 0.7 (0.0-0.8) K/uL Eos # (Auto) 0.1 (0.0-0.7) K/uL Baso # (Auto) 0.0 (0.0-0.1) K/uL Sodium 129 L (136-145) mmol/L Potassium 3.9 (3.5-5.1) mmol/L Chloride 96 L (98-107) mmol/L Carbon Dioxide 28.9 (21.0-32.0) mmol/L BUN 10 (7.0-18.0) mg/dL Creatinine 0.9 (0.6-1.0) mg/dL Est Cr Clr Drug Dosing 50.84 mL/min Estimated GFR (MDRD) > 60.0 ml/min Glucose 96 (74-106) mg/dL Calcium 8.0 L (8.5-10.1) mg/dL Total Bilirubin 0.4 (0.2-1.0) mg/dL AST 22 (15-37) IU/L ALT 33 (14-63) IU/L Alkaline Phosphatase 97 (46-116) U/L Total Protein 7.1 (6.4-8.2) g/dL Albumin 3.7 (3.4-5.0) g/dL Globulin 3.4 (2.6-4.0) g/dL Albumin/Globulin Ratio 1.1 (0.9-1.6) Meds: Medications Discontinued Medications Generic Name Dose Route Start Last Admin Trade Name Freq PRN Reason Stop Dose Admin Hydrocodone Bitart/Acetaminophen 1 tab 06/06/20 16:35 06/06/20 16:48 Hoople 325-5 Mg PO 06/06/20 16:36 1 tab ONETIME ONE Administration Cyclobenzaprine HCl 10 mg 06/06/20 16:06 06/06/20 16:57 Flexeril PO 06/06/20 16:07 Not Given ONETIME ONE Ibuprofen 600 mg 06/06/20 16:06 06/06/20 16:57 Motrin PO 06/06/20 16:07 Not Given ONETIME ONE Departure - Departure Time of Disposition: 16:50 Disposition: Home, Self-Care 01 Clinical Impression: Fall Qualifiers: Encounter type: initial encounter Qualified Code(s): W19.XXXA - Unspecified fall, initial encounter Closed T12 fracture Qualifiers: Encounter type: initial encounter Fracture morphology: other fracture Qualified Code(s): S22.088A - Other fracture of T11-T12 vertebra, initial encounter for closed fracture Back pain Qualifiers: Back pain location: back pain in other location Chronicity: acute Qualified Code(s): M54.9 - Dorsalgia, unspecified - Discharge Information Prescriptions: Acetaminophen/HYDROcodone [Hoople 325-5 MG] 1 dose PO Q4H #30 tablet Instructions: Acute Back Pain, Adult, Thoracic Spine Fracture, [id number] Referrals: PCP,None [Primary Care Provider] - Forms: ED Department Discharge Additional Instructions: The following information is given to patients seen in the emergency department who are being discharged to home. This information is to outline your options for follow-up care. We provide all patients seen in our emergency department with a follow-up referral. The need for follow-up, as well as the timing and circumstances, are variable depending upon the specifics of your emergency department visit. If you don't have a primary care physician on staff, we will provide you with a referral. We always advise you to contact your personal physician following an emergency department visit to inform them of the circumstance of the visit and for follow-up with them and/or the need for any referrals to a consulting specialist. The emergency department will also refer you to a specialist when appropriate. This referral assures that you have the opportunity for follow-up care with a specialist. All of these measure are taken in an effort to provide you with optimal care, which includes your follow-up. Under all circumstances we always encourage you to contact your private physician who remains a resource for coordinating your care. When calling for follow-up care, please make the office aware that this follow-up is from your recent emergency room visit. If for any reason you are refused follow-up, please contact the [facility] Emergency Department at and asked to speak to the emergency department charge nurse. [facility] [address] [place] [id number] [facility] [address] [place] [address] Thank you for choosing the [facility] emergency department in [place] for your medical needs today. It was a pleasure caring for you. Today you were seen in the emergency department for back pain related to fall. 1. Your work-up in the ER today showed a fracture of the inferior endplate. This fracture is stable and does not involve the posterior elements. You will likely be sore and experience pain over the next few days/weeks. You have been given a prescription for pain medication. If your symptoms should worsen, new symptoms develop or any of the signs and symptoms we discussed should arise please return to the emergency room or call 911 (if needed). 2. You can alternate Tylenol and/or Ibuprofen as needed. Hoople 1-2 tabs every 4- 6 hours as needed for pain. This medication may cause drowsiness, so do not take while driving or needing to be functioning outside the house. 3. Please call your primary care provider for follow up and re-evaluation as we discussed. Sepsis Event Note (ED) - Focused Exam Vital Signs: Vital Signs Temp Pulse Resp BP Pulse Ox 06/06/20 17:15 80 17 156/86 H 98 06/06/20 14:49 96.6 F L 79 18 135/75 97
[2020-06-06 15:26] LABS: BLOOD UREA NITROGEN,BUN 10 mg/dL (7.0-18.0); CARBON DIOXIDE,CO2 28.9 mmol/L (21.0-32.0); CHLORIDE,CL 96 mmol/L (98-107); GLUCOSE RANDOM 96 mg/dL (74-106); POTASSIUM,K 3.9 mmol/L (3.5-5.1); SODIUM,NA 129 mmol/L (136-145)
--- NOTE | 2020-06-06 16:00 | CT ---
CT cervical spine Technique: Multiple axial sections through the cervical spine were obtained. Study was obtained from above C1 inferiorly to the bottom of T3. Comparison: No prior cervical spine imaging is available. Findings: Vertebral body heights and disc spaces are preserved. Scattered degenerative apophyseal change is seen throughout the cervical spine. Vertebral body heights and disc spaces are fairly well preserved. No acute fracture is seen. No abnormal subluxation is appreciated. Impression: 1. Mild degenerative change as noted above. 2. No acute fracture or abnormal subluxation is seen. Diagnostic code #2 Study was dictated in MDT
--- NOTE | 2020-06-06 16:04 | CT ---
Head CT Technique: Multiple axial sections through the brain were obtained. Intravenous contrast was not utilized. Comparison: No prior intracranial imaging is available. Findings: Ventricles along with basal cisterns and sulci over convexities are within normal limits for the patient's age. Diminished density is noted within portions the periventricular and subcortical white matter compatible with small vessel ischemic demyelination change. No evidence of intracranial hemorrhage. No midline shift or mass effect is appreciated. Mild atherosclerotic calcification within the vertebral vessels and within the carotid siphon is seen. Bone window settings were reviewed which shows no acute paranasal sinus findings or mastoid sinus findings. No acute calvarial abnormality is appreciated. Impression: 1. Senescent change as described above. 2. Nothing acute is appreciated on noncontrast head CT exam. Diagnostic code #2 Study was dictated in MDT
[2020-06-06] MEDS ORDERED: Ibuprofen 600 MG Tab PO ONE (16:06)
[2020-06-06] MEDS ORDERED: Cyclobenzaprine 10 MG Tab PO ONE (16:06)
--- NOTE | 2020-06-06 16:17 | CT ---
CT thoracic spine Technique: Multiple axial sections through the thoracic spine were obtained. Reconstructed coronal and sagittal images were obtained. Findings: Scattered disc space narrowing is seen. Scattered anterior osteophytes within the mid and lower thoracic spine are seen. Slight fracture is noted within the inferior endplate of T12. No additional thoracic spine fractures seen. Mild degenerative change scattered throughout the apophyseal joints. No abnormal subluxation is seen. Impression: 1. Inferior endplate fracture of T12. 2. Scattered degenerative change. 3. No other acute abnormality is appreciated. Diagnostic code #2 Study was dictated in MDT
--- NOTE | 2020-06-06 16:21 | CT ---
CT lumbar spine Technique: Fracture is felt to be present within the inferior endplate of T12. Posterior elements are intact. No additional fracture is seen within this vertebral body. No additional lumbar spine fracture is seen. No abnormal subluxation is seen. Disc space narrowing is noted at T10-T11 and T11-T12. Posterior disc space narrowing is noted at T12-L1. Moderate disc space narrowing at L3-L4 with vacuum phenomena. Evidence of annular rupture at L3-L4 with epidural air being seen. Circumferential disc bulge is noted at L3-L4 causing mild central canal stenosis. Disc bulging also noted into the inferior neural foramina but nerve roots appear to exit without definite compromise. Severe degenerative apophyseal change is noted at L4-L5. Minimal circumferential disc bulge is seen. No central canal stenosis or neural foraminal stenosis is seen. Diffuse left sided disc bulge is seen at L5-S1 into the neural foramina causing left-sided neural foraminal stenosis. Right neural foramina is patent. Severe degenerative apophyseal change is seen. Impression: 1. Fracture within the inferior endplate of T12. This fracture is stable and does not involve the posterior elements. 2. Degenerative change as noted above. 3. No additional fracture is seen. No acute subluxation is seen. Diagnostic code #3 Study was dictated in MDT
--- NOTE | 2020-06-06 16:31 | CR ---
Chest: Portable view of the chest was obtained. Comparison: No prior chest imaging is available. Heart size is normal. Tortuous thoracic aorta is seen. Minimal atelectasis within left lung base. Lungs otherwise are clear. Bony structures are grossly intact. Impression: 1. Minimal atelectasis within left base. 2. Nothing acute is appreciated on portable chest x-ray. Diagnostic code #2 Study was dictated in MDT
[2020-06-06] MEDS ORDERED: Acetaminophen/HYDROcodone 325-5 MG Tab PO ONE (16:35)
[2020-06-06 17:24] VITALS: BP 156/86; PULSE 80
== END 2020-06-06 17:24 | disposition home or self-care (01) ==
LOC: MW.ED 14:43
DX: S22.088A Other fracture of T11-T12 vertebra, initial encounter for closed fracture (principal); I10 Essential (primary) hypertension; J44.9 Chronic obstructive pulmonary disease, unspecified; F41.9 Anxiety disorder, unspecified; E66.9 Obesity, unspecified; Z68.33 Body mass index [BMI] 33.0-33.9, adult; Z79.899 Other long term (current) drug therapy; Z88.0 Allergy status to penicillin; Z88.2 Allergy status to sulfonamides; Z88.8 Allergy status to other drugs, medicaments and biological substances; Z88.1 Allergy status to other antibiotic agents; W01.198A Fall on same level from slipping, tripping and stumbling with subsequent striking against other object, initial encounter; Y93.39 Activity, other involving climbing, rappelling and jumping off
CPT/HCPCS: 36415; 70450; 71045; 72125; 72128; 72131; 80053; 85025; 99284; A9270; 99283

== ENCOUNTER 2021-05-02 10:02 | Day surgery (SDC) | payer MEDICARE, BC ==
--- NOTE | 2021-05-02 08:50 | PCM.PREANE ---
Preanesthetic Assessment - Anesthesia/Transfusion/Family Hx Anesthesia History: Prior Anesthesia Without Reaction Family History of Anesthesia Reaction: No Transfusion History: No Prior Transfusion(s) Intubation History: Unknown - Review of Systems General: Weakness Pulmonary: Shortness of Breath, Cough Cardiovascular: No Symptoms Gastrointestinal: No Symptoms Neurological: No Symptoms Other: Reports: Depression - Physical Assessment NPO Status Date: 05/02/21 NPO Status Time: 00:00 Height: 5 ft 5 in Weight: 196 lb ASA Class: 3 Mental Status: Alert & Oriented x3 Airway Class: Mallampati = 2 Dentition: Reports: Normal Dentition Thyro-Mental Finger Breadths: 3 Mouth Opening Finger Breadths: 3 ROM/Head Extension: Full Lungs: Clear to Auscultation, Normal Respiratory Effort Cardiovascular: Regular Rate, Regular Rhythm - Allergies Allergies/Adverse Reactions: Allergies Allergy/AdvReac Type Severity Reaction Status Date / Time amoxicillin [From Augmentin] Allergy Abdominal Verified 04/26/21 10:15 Pain chlorpheniramine Allergy Change Verified 04/26/21 10:15 Mental Status clavulanic acid Allergy Abdominal Verified 04/26/21 10:15 [From Augmentin] Pain esomeprazole magnesium Allergy Stomach Verified 06/06/20 14:52 [From Nexium] Upset sulfamethoxazole Allergy Nausea and Verified 04/26/21 10:15 [From Bactrim] Vomiting trimethoprim [From Bactrim] Allergy Nausea and Verified 04/26/21 10:15 Vomiting - Blood Blood Available: No - Acknowledgements Anesthesia Type Planned: General Anesthesia Pt an Appropriate Candidate for the Planned Anesthesia: Yes Alternatives and Risks of Anesthesia Discussed w Pt/Guardian: Yes Pt/Guardian Understands and Agrees with Anesthesia Plan: Yes PreAnesthesia Questionnaire - Past Health History Medical/Surgical History: Denies Medical/Surgical History HEENT History: Reports: Cataract, Hard of Hearing, Impaired Vision Other HEENT History: Blind, has bilateral hearing aides Cardiovascular History: Reports: Hypertension Other Cardiovascular History: was told she has a "leaky valve " in her heart Respiratory History: Reports: COPD, Sleep Apnea Other Respiratory History: uses CPAP every night, has mild COPD due to chronic pneumonia Gastrointestinal History: Reports: Cholelithiasis, GERD, Irritable Bowel Syndrome Genitourinary History: Reports: Urinary Incontinence [employer] History: Reports: Musculoskeletal History: Reports: Fracture, Osteoarthritis Other Musculoskeletal History: hx of fx T12 Neurological History: Reports: Other (See Below) Other Neuro History: hx of motion sickness and claustrophobia Psychiatric History: Reports: None Other Psychiatric History: when traveling because of IBS Endocrine/Metabolic History: Reports: Obesity/BMI 30+, Osteopenia Hematologic History: Reports: None Immunologic History: Reports: None Oncologic (Cancer) History: Reports: None Dermatologic History: Reports: Other (See Below) Other Dermatologic History: chronic perineal itching - Infectious Disease History Infectious Disease History: Reports: Chicken Pox, Measles - Past Surgical History Head Surgeries/Procedures: Reports: None HEENT Surgical History: Reports: Cataract Surgery, Myringotomy w Tube(s), Naso- Sinus Surgery Cardiovascular Surgical History: Reports: None Respiratory Surgical History: Reports: None GI Surgical History: Reports: Cholecystectomy, Colonoscopy Female Surgical History: Reports: None Endocrine Surgical History: Reports: None Neurological Surgical History: Reports: None Musculoskeletal Surgical History: Reports: Arthroscopic Knee, Shoulder Surgery Other Musculoskeletal Surgeries/Procedures:: right RTCR, left knee arthroscopy, arthritis "cleaned out" from L4-L5-S1 Oncologic Surgical History: Reports: None - SUBSTANCE USE Tobacco Use Status *Q: Former Tobacco User Tobacco Use Within Last Twelve Months: No Recreational Drug Use History: No - HOME MEDS Home Medications: Home Meds Mirabegron [Myrbetriq] 50 mg PO DAILY 03/11/15 [History] Hyoscyamine Sulfate 0.125 mg SL Q4H PRN 08/12/17 [History] Nystatin [Nystatin Ointment] 1 dose TOP ASDIRECTED PRN 08/12/17 [History] Triamcinolone Acetonide [Triamcinolone Acetonide 0.1% Oint] 1 dose TOP ASDIRECTED PRN 08/12/17 [History] Albuterol Sulfate [Proair Hfa] 2 puff INH Q4H PRN 05/15/18 [History] Loratadine [Claritin] 10 mg PO DAILY 03/19/19 [History] Metoprolol Succinate 25 mg PO QAM 03/19/19 [History] Escitalopram [Lexapro] 5 mg PO DAILY 11/29/19 [History] Fluticasone/Salmeterol [Advair 250-50] 1 puff INH BID 11/29/19 [History] Acetaminophen/Diphenhydramine [Tylenol Pm Ex-Strength Caplet] 1 tab PO BEDTIME 04/26/21 [History] Ascorbic Acid [Vitamin C] 500 mg PO DAILY 04/26/21 [History] Cholecalciferol (Vitamin D3) [Vitamin D3] 5,000 unit PO DAILY 04/26/21 [History] Cimetidine 400 mg PO QAM 04/26/21 [History] Cranberry 400 mg PO DAILY 04/26/21 [History] Estrogens, Conjugated [Premarin Vaginal Crm] 1 dose VAG ASDIRECTED 04/26/21 [History] Fluticasone Propionate [Flonase] 2 spray NASBOTH TID 04/26/21 [History] L.acidoph,Paracasei, B.lactis [Probiotic] 1 cap PO TIDMEALS 04/26/21 [History] Mag Hydrox/Aluminum Hyd/Simeth [Mylanta Maximum Strength Liq] 1 tbsp PO BEDTIME 04/26/21 [History] Omeprazole 20 mg PO QAM 04/26/21 [History] Phentermine HCl 15 mg PO QAM 04/26/21 [History] Psyllium Husk (With Sugar) [Metamucil Powder] 1 dose PO ASDIRECTED PRN 04/26/21 [History] - CURRENT (IN HOUSE) MEDS Current Meds: Current Medications Albuterol (Albuterol 0.083% 2.5 Mg/3 Ml Neb Soln) 2.5 mg NEB ONETIME PRN PRN Reason: Wheezing Droperidol (Droperidol 5 Mg/2 Ml Sdv) 0.625 mg IVPUSH ONETIME PRN PRN Reason: Nausea/Vomiting Fentanyl (Fentanyl 100 Mcg/2 Ml Sdv) 50 mcg IVPUSH Q5M PRN PRN Reason: Pain (mild 1-3) Hydromorphone HCl (Hydromorphone 2 Mg/Ml Syringe) 1 mg IVPUSH Q10M PRN PRN Reason: Pain (moderate 4-6) Metoclopramide HCl (Metoclopramide 10 Mg/2 Ml Sdv) 10 mg IVPUSH ONETIME PRN PRN Reason: Nausea/Vomiting Morphine Sulfate (Morphine 2 Mg/Ml Syringe) 2 mg IVPUSH Q10M PRN PRN Reason: Pain (severe 7-10) Naloxone HCl (Naloxone 0.4 Mg/Ml Syringe) 0.1 mg IVPUSH ASDIRECTED PRN PRN Reason: Respiratory Depression Ondansetron HCl (Ondansetron 4 Mg/2 Ml Sdv) 4 mg IVPUSH ONETIME PRN PRN Reason: Nausea/Vomiting Discontinued Medications Bupivacaine HCl (Bupivacaine 0.25% 10 Ml Sdv) Confirm Administered Dose 20 ml .ROUTE .[facility] ONE Stop: 05/02/21 07:25
[~2021-05-02 10:02] MED LIST changes: +Albuterol 0.083% 2.5 MG/3 ML Neb Soln NEB PRN; +Bupivacaine 0.25% 10 ML SDV ONE; +HYDROmorphone 2 MG/ML Syringe IVPUSH PRN; -Lactated Ringers 1,000 ML IV SCH; +Lidocaine 1% with EPINEPHrine 1:100,000 20 ML MDV ONE; +Metoclopramide 10 MG/2 ML SDV IVPUSH PRN; +Morphine 2 MG/ML SYRINGE IVPUSH PRN; +Naloxone 0.4 MG/ML Syringe IVPUSH PRN; +Neomycin/Polymyxin B Bladder Irrigation 1 ML Amp ONE; +Octyl 2-Cyanoacrylate 1 Tube ONE; +Ondansetron 4 MG/2 ML SDV IVPUSH PRN; +fentaNYL 100 MCG/2 ML SDV IVPUSH PRN; +fentaNYL 100 MCG/2 ML SDV ONE; +propofoL 100 ML ONE
[2021-05-02] MEDS ORDERED: Scopolamine 1.5 MG Transdermal Patch ONE (10:34)
[2021-05-02 10:52] LABS: BLOOD UREA NITROGEN,BUN 13 mg/dL (7.0-18.0); CARBON DIOXIDE,CO2 28.5 mmol/L (21.0-32.0); CHLORIDE,CL 99 mmol/L (98-107); GLUCOSE RANDOM 106 mg/dL (74-106); POTASSIUM,K 4.4 mmol/L (3.5-5.1); SODIUM,NA 135 mmol/L (136-145)
[2021-05-02] MEDS ORDERED: Metoclopramide 10 MG/2 ML SDV ONE (10:55)
[2021-05-02] MEDS ORDERED: Lidocaine 2% 5 ML SDV ONE (10:55)
[2021-05-02] MEDS ORDERED: Ondansetron 4 MG/2 ML SDV ONE ×2 (10:56)
[2021-05-02] MEDS ORDERED: Dexamethasone 4 MG/ML 5 ML MDV ONE (11:00)
[2021-05-02] MEDS ORDERED: ceFAZolin 1 GM Vial ONE ×2 (11:12)
[2021-05-02] MEDS ORDERED: Octyl 2-Cyanoacrylate 1 Tube ONE (11:42)
[2021-05-02] MEDS ORDERED: Lidocaine 1% with EPINEPHrine 1:100,000 20 ML MDV ONE (11:42)
[2021-05-02] MEDS ORDERED: Bupivacaine 0.25% 10 ML SDV ONE (11:42)
--- NOTE | 2021-05-02 11:46 | PCM.POSTAN ---
POST ANESTHESIA ASSESSMENT - MENTAL STATUS Mental Status: Alert, Oriented - VITAL SIGNS Vital Signs: Last Vital Signs Temp 97.0 F 05/02/21 10:22 Pulse 92 05/02/21 10:22 Resp 16 05/02/21 10:22 BP Pulse Ox 94 L 05/02/21 10:22 - RESPIRATORY Respiratory Status: Respiratory Rate WNL, Airway Patent, O2 Saturation Stable - CARDIOVASCULAR CV Status: Pulse Rate WNL, Blood Pressure Stable - GASTROINTESTINAL GI Status: No Symptoms - POST OP HYDRATION Hydration Status: Adequate & Stable
--- NOTE | 2021-05-02 11:46 | PCM48HPAN ---
Post Anesthesia Note - EVALUATION WITHIN 48HRS OF ANESTHETIC Vital Signs in Normal Range: Yes Patient Participated in Evaluation: Yes Respiratory Function Stable: Yes Airway Patent: Yes Cardiovascular Function Stable: Yes Hydration Status Stable: Yes Pain Control Satisfactory: Yes Nausea and Vomiting Control Satisfactory: Yes Mental Status Recovered: Yes Vital Signs: Last Vital Signs Temp 97.0 F 05/02/21 10:22 Pulse 92 05/02/21 10:22 Resp 16 05/02/21 10:22 BP Pulse Ox 94 L 05/02/21 10:22
[2021-05-02] MEDS ORDERED: Acetaminophen 325 MG Tab PO PRN (11:56)
[2021-05-02] MEDS ORDERED: Morphine 4 MG/ML Syringe IVPUSH PRN (11:56)
[2021-05-02] MEDS ORDERED: Promethazine 25 MG/ML SDV IM PRN (11:56)
[2021-05-02] MEDS ORDERED: Ondansetron 4 MG/2 ML SDV IVPUSH PRN (11:56)
[2021-05-02] MEDS ORDERED: Ketorolac 15 MG/ML SDV IVPUSH PRN (12:05)
--- NOTE | 2021-05-02 12:06 | PCM.OPNOTE ---
- General Post-Op/Procedure Note Date of Surgery/Procedure: 05/02/21 Operative Procedure(s): single incision mid-urethral sling, and posterior colporrhaphy Findings: 3rd degree rectocele, urethral hypermobility. Pre Op Diagnosis: stress urinary incontinence, rectocele. Post-Op Diagnosis: Same Anesthesia Technique: General LMA Primary Surgeon: Natalie Walker Secondary Surgeon: Arlin Velarde Anesthesia Provider: Robbie Daniels Director Of Physician Practices: Deja Durand Pathology: vaginal mucosa Fluid Replacement, Intraop: 600 EBL in mLs: 10 Drain/Tube Comments:: vaginal packing in place Complications: None Known Condition: Good
--- NOTE | 2021-05-02 14:34 | OR ---
SURGEON: Natalie Walker M.D. DATE OF PROCEDURE: 05/02/2021 PREOPERATIVE DIAGNOSES: 1. Symptomatic third-degree rectocele. 2. Stress urinary incontinence. POSTOPERATIVE DIAGNOSES: 1. Symptomatic third-degree rectocele. 2. Stress urinary incontinence. PROCEDURES: Posterior colporrhaphy, perineorrhaphy, and single-incision midurethral sling. PRIMARY SURGEON: Natalie Walker M.D. BOOT REPAIRER: Arlin Velarde M.D. ANESTHESIA: General LMA. ESTIMATED BLOOD LOSS: Less than 10 mL. FINDINGS: Urethral hypermobility, third-degree rectocele. COMPLICATIONS: None known. DISPOSITION: Stable to Recovery. BRIEF HISTORY: This is a 70-year-old female. She has a long history of severe stress urinary incontinence as well as recurrent urinary tract infections. Over the past 2 years, we have performed cystometries. We discussed proceeding with a retropubic sling. However, after risks and benefits were discussed and after a prolonged time period involving COVID and other procedures of waiting for this procedure, she has decided that she would like a mid urethral single incision sling rather than the retropubic sling, which may have more risk of urinary retention and more risk of visceral injury and understanding that the mid urethral single incision sling may have more likelihood for remaining stress incontinence. Risks of the mid urethral sling were discussed including bleeding; infection; injury to bowel, bladder, blood vessels, ureters, or other organs; risk of thromboembolic event; risk of anesthesia; risk of urinary retention; and risk of mesh erosion. Risks of the posterior colporrhaphy were discussed including bleeding; infection; risk of injury to vagina, rectum, or other organs; risk of thromboembolic event; and risk of dyspareunia. Understanding all these risks, she does desire to proceed. DESCRIPTION OF PROCEDURE: With the patient in dorsal lithotomy position, under adequate general LMA analgesia, the perineum and vagina were prepped with Betadine and draped in the usual fashion for vaginal surgery. SCDs had been placed. Appropriate time-out was held. A Joe catheter had been placed, and she had received 2 g of Ancef IV. The anterior vaginal wall was grasped approximately 1 cm cephalad from the urethral meatus. Hydrodissection was performed extending laterally towards the pubic ramus on the right and the left. A midline incision was made using a scalpel, and Metzenbaum scissors were used to dissect laterally towards the obturator foramen on the right and the left, up to 7 cm of undermining. The Solyx midurethral sling was then placed laterally following the undermining that had been performed and then extending slightly laterally until the obturator membrane was pierced, and this side was released. It was repeated on the opposite side in a similar fashion and placed without any difficulty. Prior to releasing, I did evaluate for location, which was at the mid urethra as well as support allowing a scissor tip between the urethra and the sling. This being completed, the sling was released, and the vaginal mucosa was closed with a running lock suture of 3-0 Vicryl. Attention was then turned towards the posterior vagina. The anterior vagina was retracted upwards, and a triangular incision was made in the perineum. Hydrodissection was performed. A midline incision was made beneath the vaginal mucosa extending to the cephalad extent of the rectocele. The muscularis layer was then from the overlying vaginal mucosa and reapproximated using multiple interrupted mattress sutures of 2-0 Vicryl. The vaginal mucosa was very slightly trimmed and closed with a running lock suture of 2-0 Vicryl. The perineal incision was further extended to allow an adequate perineorrhaphy, which was closed using a running suture of 3-0 Caprosyn for the deep tissue and a running subcuticular suture of the skin in the midline, and the vagina was then packed. Joe catheter was left in place. Final sponge, needle, and instrument counts were reported as correct. There were no known complications. The patient was transferred to Recovery in good condition. RACHELL OKEEFE /[id number]
[2021-05-02] MEDS ORDERED: Albuterol 8 GM Inhaler INH PRN (15:46)
[2021-05-02] MEDS ORDERED: Hyoscyamine 0.125 MG Tab.SL SL PRN (15:46)
[2021-05-02] MEDS ORDERED: Psyllium Husk Powder Sugar Free 5.85 GM Packet PO PRN (15:46)
[2021-05-02] MEDS ORDERED: Nystatin Crm 30 GM Tube TOP PRN (15:46)
[2021-05-02] MEDS ORDERED: TRIAMCINOLONE ACETONIDE TOP PRN (15:46)
--- NOTE | 2021-05-02 15:51 | PCM.SURGPN ---
- General Info Date of Service: 05/02/21 Date of Surgery/Procedure: 05/02/21 POD#: 0 Functional Status: Reports: Pain Controlled, Tolerating Diet. Denies: Urinating - Review of Systems General: Reports: No Symptoms HEENT: Reports: No Symptoms Pulmonary: Reports: No Symptoms Cardiovascular: Reports: No Symptoms Gastrointestinal: Reports: No Symptoms Genitourinary: Reports: No Symptoms Musculoskeletal: Reports: No Symptoms Skin: Reports: No Symptoms Neurological: Reports: No Symptoms Psychiatric: Reports: No Symptoms - Patient Data Vitals - Most Recent: Last Vital Signs Temp 36.3 C 05/02/21 12:45 Pulse 76 05/02/21 12:45 Resp 16 05/02/21 12:45 BP 113/60 05/02/21 12:45 Pulse Ox 100 05/02/21 12:45 Weight - Most Recent: 88.904 kg I&O - Last 24 Hours: Intake & Output 05/02/21 05/02/21 05/02/21 06:59 14:59 22:59 Intake Total 1600 Output Total 225 Balance 1375 Lab Results Last 24 Hrs: Laboratory Results - last 24 hr 05/02/21 05/02/21 05/02/21 Range/Units 10:23 10:23 10:26 WBC 5.92 (4.0-11.0) K/uL RBC 4.39 (4.30-5.90) M/uL Hgb 13.0 (12.0-16.0) g/dL Hct 39.1 (36.0-46.0) % MCV 89.1 (80.0-98.0) fL MCH 29.6 (27.0-32.0) pg MCHC 33.2 (31.0-37.0) g/dL RDW Std Deviation 47.1 (28.0-62.0) fl RDW Coeff of Katherine 14 (11.0-15.0) % Plt Count 313 (150-400) K/uL MPV 8.70 (7.40-12.00) fL Neut % (Auto) 55.0 (48.0-80.0) % Lymph % (Auto) 33.1 (16.0-40.0) % [place] % (Auto) 7.8 (0.0-15.0) % Eos % (Auto) 3.4 (0.0-7.0) % Baso % (Auto) 0.7 (0.0-1.5) % Neut # (Auto) 3.3 (1.4-5.7) K/uL Lymph # (Auto) 2.0 (0.6-2.4) K/uL [place] # (Auto) 0.5 (0.0-0.8) K/uL Eos # (Auto) 0.2 (0.0-0.7) K/uL Baso # (Auto) 0.0 (0.0-0.1) K/uL Nucleated RBC % 0.0 /100WBC Nucleated RBCs # 0 K/uL Sodium 135 L (136-145) mmol/L Potassium 4.4 (3.5-5.1) mmol/L Chloride 99 (98-107) mmol/L Carbon Dioxide 28.5 (21.0-32.0) mmol/L BUN 13 (7.0-18.0) mg/dL Creatinine 0.8 (0.6-1.0) mg/dL Est Cr Clr Drug Dosing 57.20 mL/min Estimated GFR (MDRD) > 60.0 ml/min Glucose 106 (74-106) mg/dL Calcium 8.6 (8.5-10.1) mg/dL Blood Type O POSITIVE Antibody Screen NEGATIVE Med Orders - Current: Current Medications Acetaminophen (Acetaminophen 325 Mg Tab) 650 mg PO Q4H PRN PRN Reason: Pain (mild 1-3) Ketorolac Tromethamine (Ketorolac 15 Mg/Ml Sdv) 15 mg IVPUSH Q6H PRN PRN Reason: Pain (severe 7-10) Stop: 05/07/21 12:06 Morphine Sulfate (Morphine 4 Mg/Ml Syringe) 4 mg IVPUSH Q2H PRN PRN Reason: Pain (severe 7-10) Non-Formulary Medication (Acetaminophen/Diphenhydramine) 1 tab PO BEDTIME DARLYN Ondansetron HCl (Ondansetron 4 Mg/2 Ml Sdv) 4 mg IVPUSH Q6H PRN PRN Reason: Nausea/Vomiting Promethazine HCl (Promethazine 25 Mg/Ml Sdv) 25 mg IM Q6H PRN PRN Reason: Nausea/Vomiting Discontinued Medications Albuterol (Albuterol 0.083% 2.5 Mg/3 Ml Neb Soln) 2.5 mg NEB ONETIME PRN PRN Reason: Wheezing Bupivacaine HCl (Bupivacaine 0.25% 10 Ml Sdv) Confirm Administered Dose 20 ml .ROUTE .STK-MED ONE Stop: 05/02/21 07:25 Bupivacaine HCl (Bupivacaine 0.25% 10 Ml Sdv) Confirm Administered Dose 20 ml .ROUTE .STK-MED ONE Stop: 05/02/21 11:43 Cefazolin Sodium (Cefazolin 1 Gm Vial) Confirm Administered Dose 1 gm .ROUTE .STK-MED ONE Stop: 05/02/21 11:13 Cefazolin Sodium (Cefazolin 1 Gm Vial) Confirm Administered Dose 1 gm .ROUTE .STK-MED ONE Stop: 05/02/21 11:13 Dexamethasone (Dexamethasone 4 Mg/Ml 5 Ml Mdv) Confirm Administered Dose 20 mg .ROUTE .STK-MED ONE Stop: 05/02/21 11:01 Droperidol (Droperidol 5 Mg/2 Ml Sdv) 0.625 mg IVPUSH ONETIME PRN PRN Reason: Nausea/Vomiting Fentanyl (Fentanyl 100 Mcg/2 Ml Sdv) 50 mcg IVPUSH Q5M PRN PRN Reason: Pain (mild 1-3) Last Admin: 05/02/21 12:02 Dose: 50 mcg Documented by: Fentanyl (Fentanyl 100 Mcg/2 Ml Sdv) Confirm Administered Dose 100 mcg .ROUTE .ST-MED ONE Stop: 05/02/21 09:45 Hydromorphone HCl (Hydromorphone 2 Mg/Ml Syringe) 1 mg IVPUSH Q10M PRN PRN Reason: Pain (moderate 4-6) Propofol (Diprivan 100 Ml) Confirm Administered Dose 100 mls @ as directed .ROUTE .STK-MED ONE Stop: 05/02/21 09:06 Acetaminophen (Ofirmev 1000 Mg/100 Ml) Confirm Administered Dose 100 mls @ as directed .ROUTE .STK-MED ONE Stop: 05/02/21 11:55 Lidocaine (Lidocaine 2% 5 Ml Sdv) Confirm Administered Dose 5 ml .ROUTE .STK-MED ONE Stop: 05/02/21 10:56 Lidocaine/Epinephrine (Lidocaine 1% With Epinephrine 1:100,000 20 Ml Mdv) Confirm Administered Dose 20 ml .ROUTE .STK-MED ONE Stop: 05/02/21 09:54 Lidocaine/Epinephrine (Lidocaine 1% With Epinephrine 1:100,000 20 Ml Mdv) Confirm Administered Dose 20 ml .ROUTE .STK-MED ONE Stop: 05/02/21 11:43 Metoclopramide HCl (Metoclopramide 10 Mg/2 Ml Sdv) 10 mg IVPUSH ONETIME PRN PRN Reason: Nausea/Vomiting Metoclopramide HCl (Metoclopramide 10 Mg/2 Ml Sdv) Confirm Administered Dose 10 mg .ROUTE .STK-MED ONE Stop: 05/02/21 10:56 Morphine Sulfate (Morphine 2 Mg/Ml Syringe) 2 mg IVPUSH Q10M PRN PRN Reason: Pain (severe 7-10) Naloxone HCl (Naloxone 0.4 Mg/Ml Syringe) 0.1 mg IVPUSH ASDIRECTED PRN PRN Reason: Respiratory Depression Neomycin/Polymyxin (Neomycin/Polymyxin B Bladder Irrigation 1 Ml Amp) Confirm Administered Dose 1 ml .ROUTE .STK-MED ONE Stop: 05/02/21 09:54 Octyl Cyanoacrylate (Octyl 2-Cyanoacrylate 1 Tube) Confirm Administered Dose 1 applic .ROUTE .STVolly-MED ONE Stop: 05/02/21 09:54 Octyl Cyanoacrylate (Octyl 2-Cyanoacrylate 1 Tube) Confirm Administered Dose 1 applic .ROUTE .STVolly-MED ONE Stop: 05/02/21 11:43 Ondansetron HCl (Ondansetron 4 Mg/2 Ml Sdv) 4 mg IVPUSH ONETIME PRN PRN Reason: Nausea/Vomiting Ondansetron HCl (Ondansetron 4 Mg/2 Ml Sdv) Confirm Administered Dose 4 mg .ROUTE .STK-MED ONE Stop: 05/02/21 10:57 Ondansetron HCl (Ondansetron 4 Mg/2 Ml Sdv) Confirm Administered Dose 4 mg .ROUTE .STK-MED ONE Stop: 05/02/21 10:57 Scopolamine (Scopolamine 1.5 Mg Transdermal Patch) Confirm Administered Dose 1.5 mg .ROUTE .STK-MED ONE Stop: 05/02/21 10:35 - Exam General: Alert GI/Abdominal Exam: Soft, Non-Tender Extremities: Non-Tender, No Pedal Edema Physical Findings Comment:: vaginal packing removed scant dark brown blood, small red blood after packing removed. Sepsis Event Note - Focused Exam Vital Signs: Vital Signs Temp Pulse Resp BP Pulse Ox 05/02/21 12:45 36.3 C 76 16 113/60 100 05/02/21 12:20 73 12 107/55 L 95 05/02/21 12:15 74 12 106/54 L 95 05/02/21 12:10 70 11 L 101/53 L 96 05/02/21 12:05 68 12 92/44 L 96 05/02/21 12:00 61 24 H 88/42 L 96 05/02/21 11:55 66 11 L 86/45 L 96 05/02/21 11:50 63 13 83/36 L 95 05/02/21 11:45 83 17 104/56 L 92 L 05/02/21 11:40 84 13 126/65 92 L 05/02/21 11:35 36.7 C 86 16 142/73 H 100 05/02/21 10:22 36.1 C 92 16 94 L - Problem List & Annotations (1) LAKESHA (stress urinary incontinence, female) SNOMED Code(s): 35664068 Code(s): N39.3 - STRESS INCONTINENCE (FEMALE) (MALE) Status: Acute Current Visit: Yes (2) Rectocele SNOMED Code(s): 9412523 Code(s): N81.6 - RECTOCELE Status: Acute Current Visit: Yes - Problem List Review Problem List Initiated/Reviewed/Updated: Yes - My Orders Last 24 Hours: Active Orders 24 hr Category Date Time Status Patient Status [ADT] Routine ADT 05/02/21 11:56 Active Antiembolic Devices [RC] PER UNIT ROUTINE Care 05/02/21 11:58 Active Blood Glucose Check, Bedside [RC] PRN Care 05/02/21 07:26 Active Notify Provider Intake and Out [RC] ASDIRECTED Care 05/02/21 11:56 Active Notify Provider Vital Signs [RC] ASDIRECTED Care 05/02/21 07:26 Active Notify Provider Vital Signs [RC] ASDIRECTED Care 05/02/21 11:56 Active Overnight Pulse Oximetry [RC] Click to Edit Care 05/02/21 07:26 Active Oxygen Therapy [RC] ASDIRECTED Care 05/02/21 11:56 Active Oxygen Therapy [RC] PRN Care 05/02/21 07:26 Active RT Aerosol Therapy [RC] ASDIRECTED Care 05/02/21 07:26 Active RT BiPAP/CPAP [RC] ASDIRECTED Care 05/02/21 07:26 Active RT Incentive Spirometry [RC] Q2HWA Care 05/02/21 11:56 Active RT Post Treatment Assessment [RC] Click to Edit Care 05/02/21 15:47 Ordered RT Pre-Treatment Assessment [RC] Click to Edit Care 05/02/21 15:47 Ordered Ready for Discharge [RC] PER UNIT ROUTINE Care 05/02/21 15:45 Ordered Up With Assistance [RC] PER UNIT ROUTINE Care 05/02/21 11:56 Active Up ad Miriam [RC] PER UNIT ROUTINE Care 05/02/21 11:56 Active Urinary Catheter Removal [RC] Per Unit Routine Care 05/02/21 11:56 Active Vital Signs [RC] PER UNIT ROUTINE Care 05/02/21 11:56 Active Regular Diet [DIET] Diet 05/02/21 Lunch Active Acetaminophen [TylenoL] Med 05/02/21 11:56 Active 650 mg PO Q4H PRN Acetaminophen/Diphenhydramine Med 05/02/21 21:00 Ordered 1 tab PO BEDTIME Albuterol Med 05/02/21 15:46 Ordered 2 puff INH Q4H PRN Ascorbic Acid [Vitamin C] Med 05/03/21 09:00 Ordered 500 mg PO DAILY Cholecalciferol (Vitamin D3) Med 05/03/21 09:00 Ordered 5,000 unit PO DAILY Cimetidine [Cimetidine] Med 05/03/21 09:00 Ordered 400 mg PO QAM Cranberry [Cranberry] Med 05/03/21 09:00 Ordered 400 mg PO DAILY Escitalopram [Lexapro] Med 05/03/21 09:00 Ordered 5 mg PO DAILY Fluticasone Propionate [Flonase] Med 05/02/21 22:00 Ordered 2 spray NASBOTH TID Fluticasone/Salmeterol [Advair Diskus 250-50] Med 05/02/21 21:00 Ordered 1 puff INH BID Hyoscyamine [Hyomax-SL] Med 05/02/21 15:46 Ordered 0.125 mg SL Q4H PRN Ketorolac [Toradol] Med 05/02/21 12:05 Active 15 mg IVPUSH Q6H PRN L.acidoph,Paracasei, B.lactis [Probiotic] Med 05/02/21 17:30 Ordered 1 cap PO TIDMEALS Loratadine [Claritin] Med 05/03/21 09:00 Ordered 10 mg PO DAILY Mag Hydrox/Aluminum Hyd/Simeth [Mylanta Maximum Med 05/02/21 21:00 Ordered Strength Liq] 1 tbsp PO BEDTIME Metoprolol Succinate [Toprol XL] Med 05/03/21 09:00 Ordered 25 mg PO QAM Mirabegron [Myrbetriq] Med 05/03/21 09:00 Ordered 50 mg PO DAILY Morphine Med 05/02/21 11:56 Active 4 mg IVPUSH Q2H PRN Nystatin Med 05/02/21 15:46 Ordered 1 dose TOP ASDIRECTED PRN Omeprazole [Omeprazole] Med 05/03/21 09:00 Ordered 20 mg PO QAM Ondansetron [Zofran] Med 05/02/21 11:56 Active 4 mg IVPUSH Q6H PRN Phentermine HCl [Phentermine HCl] Med 05/03/21 09:00 Ordered 15 mg PO QAM Promethazine [Phenergan] Med 05/02/21 11:56 Active 25 mg IM Q6H PRN Psyllium Husk (With Sugar) [Metamucil Powder] Med 05/02/21 15:46 Ordered 1 dose PO ASDIRECTED PRN Triamcinolone Acetonide Med 05/02/21 15:46 Ordered 1 dose TOP ASDIRECTED PRN Peripheral IV Discontinue [OM.PC] Routine Oth 05/02/21 11:56 Ordered Pulse Oximetry Continuous Monitoring [OM.PC] Routine Oth 05/02/21 07:26 Ordered Remove Vaginal Packing [OM.PC] Per Unit Routine Oth 05/02/21 16:00 Ordered Sequential Compression Device [OM.PC] Per Unit Routine Oth 05/02/21 11:56 Ordered Resuscitation Status Routine Resus Stat 05/02/21 11:56 Ordered Medication Orders Acetaminophen (Acetaminophen 325 Mg Tab) 650 mg PO Q4H PRN PRN Reason: Pain (mild 1-3) Ketorolac Tromethamine (Ketorolac 15 Mg/Ml Sdv) 15 mg IVPUSH Q6H PRN PRN Reason: Pain (severe 7-10) Stop: 05/07/21 12:06 Morphine Sulfate (Morphine 4 Mg/Ml Syringe) 4 mg IVPUSH Q2H PRN PRN Reason: Pain (severe 7-10) Non-Formulary Medication (Acetaminophen/Diphenhydramine) 1 tab PO BEDTIME DARLYN Ondansetron HCl (Ondansetron 4 Mg/2 Ml Sdv) 4 mg IVPUSH Q6H PRN PRN Reason: Nausea/Vomiting Promethazine HCl (Promethazine 25 Mg/Ml Sdv) 25 mg IM Q6H PRN PRN Reason: Nausea/Vomiting - Assessment Assessment (Free Text/Narrative):: POD) after single incision midurethral sling and posterior colporrhaphy. Stable, denies pain, packing removed - Plan Plan (Free Text/Narrative):: Voiding trial, and monitor for bleeding for 1-2 hours. If stable and successful voiding will discharge. Discharge instructions reviewed
[2021-05-02 16:05] VITALS: BP 124/76; PULSE 79
[2021-05-02] MEDS ORDERED: L.Acidoph,Paracasei, B.Lactis [Probiotic] PO SCH (17:30)
[2021-05-02] MEDS ORDERED: DIPHENHYDRAMINE PO SCH (21:00)
[2021-05-02] MEDS ORDERED: Aluminum Hydroxide/Magnesium Hydroxide/Simethicone Susp 30 ML Cup PO SCH (21:00)
[2021-05-02] MEDS ORDERED: Fluticasone/Salmeterol 250-50 MCG Inhalation Powder 14/Diskus INH SCH (21:00)
[2021-05-02] MEDS ORDERED: ACETAMINOPHEN PO SCH (21:00)
[2021-05-02] MEDS ORDERED: Fluticasone Propionate Nasal Spray 16 GM Bottle NASBOTH SCH (22:00)
[2021-05-03] MEDS ORDERED: Omeprazole 20 MG Cap.CR PO SCH (07:30)
[2021-05-03] MEDS ORDERED: Metoprolol Succinate 25 MG Tab.ER PO SCH (09:00)
[2021-05-03] MEDS ORDERED: CRANBERRY 400 MG PO SCH (09:00)
[2021-05-03] MEDS ORDERED: MIRABEGRON 50 MG PO SCH (09:00)
[2021-05-03] MEDS ORDERED: PHENTERMINE HCL 15 MG PO SCH (09:00)
[2021-05-03] MEDS ORDERED: Cholecalciferol (Vitamin D3) 25 MCG Tab PO SCH (09:00)
[2021-05-03] MEDS ORDERED: Ascorbic Acid 500 MG Tab PO SCH (09:00)
[2021-05-03] MEDS ORDERED: Escitalopram 10 MG Tab PO SCH (09:00)
[2021-05-03] MEDS ORDERED: Loratadine 10 MG Tab PO SCH (09:00)
== END 2021-05-02 21:40 | disposition home or self-care (01) ==
LOC: MW.SDS 10:02 → MW.OB 11:57 → MW.SDS 21:40
PROVIDERS: ATTEND Obstetrics & Gynecology
DX: N39.3 Stress incontinence (female) (male) (principal); N81.6 Rectocele; Z79.899 Other long term (current) drug therapy; I10 Essential (primary) hypertension; J44.9 Chronic obstructive pulmonary disease, unspecified; G47.30 Sleep apnea, unspecified; M81.0 Age-related osteoporosis without current pathological fracture; Z90.49 Acquired absence of other specified parts of digestive tract; Z98.890 Other specified postprocedural states; Z87.891 Personal history of nicotine dependence; Z88.1 Allergy status to other antibiotic agents; Z88.8 Allergy status to other drugs, medicaments and biological substances; Z88.2 Allergy status to sulfonamides
CPT/HCPCS: 36415; 51702; 57250; 57288; 80048; 85025; 86850; 86900; 86901; 88304; A9270; C1771; J0131; J0690; J1100; J2704; J2765; J3010; J3490; 00942; J2405

== ENCOUNTER 2025-07-01 12:14 | Emergency (ER) | payer MEDICARE ==
[2025-07-01 14:38] VITALS: BP 145/91; PULSE 67
== END 2025-07-01 14:37 | disposition critical access hospital (66) ==
LOC: MW.ED 12:14
DX: S52.502A Unspecified fracture of the lower end of left radius, initial encounter for closed fracture (principal); I10 Essential (primary) hypertension; J44.9 Chronic obstructive pulmonary disease, unspecified; E66.9 Obesity, unspecified; Z90.49 Acquired absence of other specified parts of digestive tract; Z88.0 Allergy status to penicillin; Z88.8 Allergy status to other drugs, medicaments and biological substances; Z79.51 Long term (current) use of inhaled steroids; Z79.899 Other long term (current) drug therapy; Z75.3 Unavailability and inaccessibility of health-care facilities; W01.0XXA Fall on same level from slipping, tripping and stumbling without subsequent striking against object, initial encounter
CPT/HCPCS: 29125; 73110-26-LT; 73110-LT; 99283; 99284-25